=== PATIENT | female | born 1960 | race Caucasian/White ===

== ENCOUNTER 2019-05-15 09:49 | Outpatient (CLI) | payer OTHER, SELFPAY ==
[2019-05-15 10:22] LABS: Alanine Aminotransferase 18 U/L (4-35); Albumin Level 4.2 g/dL (3.5-5.1); Alkaline Phosphatase 102 U/L (38-126); Aspartate Amino Transferase 22 U/L (14-36); Bilirubin,Total 0.4 mg/dL (0.2-1.3); Blood Urea Nitrogen 14 mg/dL (7-17); Calcium 9.3 mg/dL (8.4-10.2); Carbon Dioxide 27 mmol/L (22-30); Chloride 102 mmol/L (98-107); Cholesterol 152 mg/dL (0-200); Estimated Glomerular Filt Rate > 60; Glucose 98 mg/dL (65-105); HDL Direct 56 mg/dL; Potassium 4.4 mmol/L (3.4-5.0); Sodium 140 mmol/L (137-145); Triglycerides 109 mg/dL (<150)
[2019-05-15 10:33] LABS: LDL Cholesterol Direct 84 mg/dL
[2019-05-15 10:41] LABS: Hemoglobin A1C 6.4 % (<5.7)
[2019-05-15 10:53] LABS: Creatinine Urine 193.9 mg/dL
[2019-05-15 10:57] LABS: MALB Creatinine Ratio 4.5 mg/g (0-30); Microalbumin Urine Random 8.7 mg/L (0-16.7)
== END 2019-05-15 09:50 | disposition home or self-care (01) ==
PROVIDERS: PCP Internal Medicine; Visit Provider Internal Medicine
DX: E11.9 Type 2 diabetes mellitus without complications (principal); E78.5 Hyperlipidemia, unspecified; E03.9 Hypothyroidism, unspecified; Z79.899 Other long term (current) drug therapy
CPT/HCPCS: 36415; 80053; 80061; 82043; 83036; 84443

== ENCOUNTER 2019-05-28 13:47 | Emergency (ER) | payer OTHER, SELFPAY ==
--- NOTE | ~2019-05-28 | XR_ITS ---
EXAMINATION: XR chest 2V DATE: 05/28/2019 14:13 INDICATION: Palpitations. TECHNIQUE: Frontal and lateral views of the chest were obtained. COMPARISON: Chest 2 views 03/28/2013 FINDINGS: The chest demonstrates clear lungs without pneumonia, pleural effusion, or pneumothorax. Th e heart size is normal. Surgical clips in the right upper quadrant are likely from cholecystectomy. IMPRESSION: 1. No acute cardiopulmonary disease. Reviewed, dictated and finalized at location A. LESOFT FUNCTIONAL ANALYST
--- NOTE | 2019-05-28 13:50 | ECG_ITS ---
Measurements Intervals [place] Rate: 66 P: 24 NE: 151 QRS: -27 QRSD: 97 T: -5 QT: 387 QTc: 406 Interpretive Statements SINUS RHYTHM DELAYED PRECORDIAL R/S TRANSITION POSSIBLE LEFT VENTRICULAR HYPERTROPHY NONSPECIFIC ST ELEVATION- ANT/LAT LEADS BORDERLINE T WAVE ABNORMALITY- INFERIOR LEADS BASELINE ARTIFACT- II, III, AVF BORDERLINE ECG Electronically Signed On 05-28-2019 16:18:50 WAXING MACHINE OPERATOR by Pardeep Raza D.O.
--- NOTE | 2019-05-28 13:51 | ED.ARRPALP ---
HPI - Arrhythmia/Palpitations General Chief Complaint: Arrhythmia/Palpitations Stated Complaint: vibrating real bad AFIB? Time Seen by Provider: 05/28/19 13:49 Source: patient Mode of arrival: ambulatory Limitations: no limitations History of Present Illness HPI narrative: A 58 y/o female presents to the ED with c/o chest vibration. Pt states that the chest vibration started while she was sitting at her house and became a tightness on her way to the ED. She has a PMHx of Afib and states that her symptoms feel similar. Pt currently takes Warfarin and Diltiazem daily and Dr. Raza is her care trainer. She notes that the chest tightness is resolved in the ED. Pt reports dizziness, sore throat, heart palpitations, and otalgia, but denies nausea, BLE edema, BLE pain, and diaphoresis. She denies any recent car or air travel. MD complaint: irregular heart beat (Chest vibration) Onset (ago): hour(s) (Today) Duration: now resolved Severity: similar to previous episodes Context: occurred during rest Associated symptoms: other (Dizziness, sore throat, heart palpitations, otalgia) Related Data Home Medications Medication Instructions Recorded Confirmed albuterol sulfate 90 mcg/actuation See Rx Instructions INHALATION Q4H 02/01/19 04/05/19 aerosol inhaler PRN alprazolam 1 mg tablet 1 mg PO BID PRN 02/01/19 04/05/19 citalopram 40 mg tablet 40 mg PO DAILY 02/01/19 04/05/19 diltiazem HCl 120 mg capsule,24 120 mg PO DAILY 02/01/19 04/05/19 hr,extended release cetirizine 10 mg tablet 10 mg PO DAILY PRN 04/05/19 04/05/19 Allergies Allergy/AdvReac Type Severity Reaction Status Date / Time clarithromycin Allergy Mild Unknown Verified 05/28/19 13:57 hydrocodone Allergy Mild NAUSEA/ITCH Verified 05/28/19 13:57 ING Macrolide Antibiotics Allergy Unknown Unknown Verified 05/28/19 13:57 POTASSIUM CLAVULANATE Allergy Unknown ITCH Uncoded 04/13/19 08:56 Review of Systems Review of Systems: Narrative: CONSTITUTIONAL: Denies fever, chills, or sweats. EYES: Denies visual changes, redness, or discharge. ENT: Denies rhinorrhea or congestion. Reports sore throat and otalgia. CARDIOVASCULAR: Denies BLE edema and diaphoresis. Reports chest vibration and heart palpitations. RESPIRATORY: Denies cough or dyspnea. GASTROINTESTINAL: Denies abdominal pain, nausea, vomiting, or diarrhea. GENITOURINARY: Denies dysuria or hematuria. SKIN: Denies rash or itching. MUSCULOSKELETAL: Denies back pain, BLE pain, joint pain, or myalgia. NEUROLOGIC: Denies headache, numbness, or weakness. Reports dizziness. All systems reviewed & are unremarkable except as noted in HPI and below [facility] Past Medical History Medical History (Updated 05/28/19 @ 17:56 by Claribel Martinez MD) Anxiety Arthritis Asthma Bilateral ankle fractures Bronchitis Chronic back pain Depression Diabetes DVT prophylaxis Dyslipidemia Fibromyalgia GERD (gastroesophageal reflux disease) Headache, migraine Hemorrhoids History of angina Hypokalemia Hypothyroidism IBS (irritable bowel syndrome) Morbid obesity with BMI of 45.0-49.9, adult AVINASH (obstructive sleep apnea) Osteoporosis PAF (paroxysmal atrial fibrillation) Peripheral neuropathy Pneumonia Post-menopausal Sinus infection Thyroid disease UTI (urinary tract infection) Surgical History Surgical History History of ankle surgery History of carpal tunnel release History of cholecystectomy History of endometrial ablation Family History Family History Father Diabetes mellitus Hypertension Family history of lung cancer Family history of malignant neoplasm of kidney Family history of diabetes mellitus in first degree relative Mother Family history of osteoporosis Hypertension Family history of arthritis Other Family history of malignant neoplasm Social History Social History
[2019-05-28 13:53] VITALS: BP 134/98; PULSE 65; RESP 16; TEMP 36.8; O2SAT 98
[2019-05-28 13:57] VITALS: PULSE 68
[2019-05-28 14:08] LABS: Basophils Absolute Auto 0.1 K/mm3 (0.0-0.1); Basophils Percent Auto 0.8 % (0.2-1.2); Eosinophils Absolute Auto 0.5 K/mm3 (0-0.3); Eosinophils Percent Auto 5.8 % (0-4.4); Hematocrit 43.4 % (37.0-47.0); Hemoglobin 14.1 g/dL (12.0-15.0); Immature Granulocyte Absolute 0.02 K/mm3 (0.00-0.031); Immature Granulocyte Percent A 0.2 % (0-0.5); Lymphocytes Absolute Auto 2.66 K/mm3 (0.9-3.2); Mean Corpuscular HGB Conc 32.5 g/dl (32-36); Mean Corpuscular Hemoglobin 27.5 pg (26-34); Mean Corpuscular Volume 84.8 fl (80-100); Mean Platelet Volume 9.7 fl (7.4-10.4); Monocytes Absolute Auto 0.5 K/mm3 (0.1-0.6); Monocytes Percent Auto 5.4 % (2.6-8.5); Neutrophils Absolute Auto 4.6 K/mm3 (1.3-6.7); Neutrophils Percent Auto 55.8 % (45.5-73.1); Platelet Count Result 337 k/mm3 (150-375); Red Blood Count 5.12 M/mm3 (4.2-5.4); Red Cell Distribution Width 15.6 % (11.5-14.5); White Blood Count 8.3 K/mm3 (4.5-10.0)
[2019-05-28 14:18] LABS: INR 1.6; Prothrombin Time 18.8 Seconds (11.1-14.7)
[2019-05-28 14:30] LABS: Blood Urea Nitrogen 11 mg/dL (7-17); Calcium 9.3 mg/dL (8.4-10.2); Carbon Dioxide 24 mmol/L (22-30); Chloride 107 mmol/L (98-107); Estimated CRCL calculation 96 ml/min; Estimated Glomerular Filt Rate > 60; Glucose 120 mg/dL (65-105); Potassium 4.4 mmol/L (3.4-5.0); Sodium 138 mmol/L (137-145)
[2019-05-28 14:42] LABS: Troponin I < 0.012 ng/mL (0.000-0.034)
[2019-05-28 15:01] LABS: Thyroid Stimulating Hormone 0.692 uIU/mL (0.465-4.680)
[2019-05-28] MEDS: SODIUM CHLORIDE 0.9% IV 1,000 ML 999 ML IV CONT (15:30)
[2019-05-28 17:53] LABS: Troponin I < 0.012 ng/mL (0.000-0.034)
[2019-05-28 18:30] VITALS: BP 129/88; PULSE 57; RESP 14; O2SAT 100
== END 2019-05-28 18:40 | disposition home or self-care (01) ==
PROVIDERS: Emergency Provider Emergency Medicine; PCP Internal Medicine
DX: R00.2 Palpitations (principal); R07.89 Other chest pain; M19.90 Unspecified osteoarthritis, unspecified site; I48.0 Paroxysmal atrial fibrillation; J45.909 Unspecified asthma, uncomplicated; E11.42 Type 2 diabetes mellitus with diabetic polyneuropathy; E78.5 Hyperlipidemia, unspecified; M79.7 Fibromyalgia; K21.9 Gastro-esophageal reflux disease without esophagitis; E03.9 Hypothyroidism, unspecified; K58.9 Irritable bowel syndrome, unspecified; G47.33 Obstructive sleep apnea (adult) (pediatric); M81.0 Age-related osteoporosis without current pathological fracture; F41.9 Anxiety disorder, unspecified; F32.9 Major depressive disorder, single episode, unspecified; Z87.440 Personal history of urinary (tract) infections; R94.31 Abnormal electrocardiogram [ECG] [EKG]; Z79.01 Long term (current) use of anticoagulants; Z79.84 Long term (current) use of oral hypoglycemic drugs
CPT/HCPCS: 36415; 71046; 80048; 84443; 84484; 85025; 85610; 85730; 93005; 96360; 99284; J7030

== ENCOUNTER 2019-09-08 09:09 | Outpatient (CLI) | payer OTHER, SELFPAY ==
[2019-09-08 09:48] LABS: Blood Urea Nitrogen 17 mg/dL (7-17); Carbon Dioxide 29 mmol/L (22-30); Chloride 103 mmol/L (98-107); Estimated Glomerular Filt Rate > 60; Glucose 114 mg/dL (65-105); Potassium 4.1 mmol/L (3.4-5.0); Sodium 137 mmol/L (137-145)
== END 2019-09-08 09:10 | disposition home or self-care (01) ==
PROVIDERS: PCP Internal Medicine; Visit Provider Nurse Practitioner
DX: R60.0 Localized edema (principal)
CPT/HCPCS: 36415; 80048

== ENCOUNTER 2019-11-01 13:45 | Outpatient (RCR) | payer OTHER, SELFPAY ==
--- NOTE | 2019-08-11 13:30 | PTOPEVAL ---
PHYSICAL THERAPY EVALUATION AND PLAN OF CARE Thank you for referring Rhonda Millan to [facility]. I recommend Mitra participate in aquatic physical therapy 2x/week for 4 weeks. Please review, sign, date and return this plan of care DENI. I agree with and certify that the following plan of care is medically necessary. Referring Physician Date Attending Provider: Doretha Anglin, SPEECH LANGUAGE PATHOLOGIST TRAVEL-BC Evaluation Cardiovascular History Hx Atrial Fibrillation Yes Musculoskeletal History Hx Back Pain Yes Endocrine History Hx Diabetes Yes Evaluation Information Problem Diagnosis bilateral knee pain Onset 05/2019 Cause insidious Subjective Information Rhonda states that she has had Query Text:As Reported By Patient/ a lifelong difficulty with Family her knees, but that after her hospitalization in 05/2019 she noticed significant increase in the pain she experiences. Walking is very difficult and walking up the stairs to enter her home is very painful and difficult Prior Level of Function Home Setting Home Type House,Single Level Environmental Barriers Railing, Ascend Right,Stairs, 2-4 Bilateral Knee(s) Reported Pain Level 7 Pain Description Aching,Sharp Pain Frequency Acute,Continuous Lowest Pain Intensity 6 Greatest Pain Intensity 8 Pain Score Pain Score 7: Self Report Knee Range of Motion Left Knee Flexion Range of Motion - Active 110 Knee Extension Range of Motion - Active 10 Query Text: Right Knee Flexion Range of Motion - Active 105 Knee Extension Range of Motion - Active 10 Query Text: Hip Strength Bilateral Hip Flexion Strength 4- Good - Hip Extension Strength 3+ Fair + Hip Abduction Strength 3- Fair - Hip Strength Comments increase in discomfort in back with hip MMT Knee Strength Bilateral Knee Flexion Strength 4- Good - Knee Extension Strength 4- Good - Knee Strength Comments fair quad set Muscle Length Testing Roosevelt Test Shortened Muscles Short (R) Iliopsoas,Short (L) Iliopsoas,Short (R) Rectus Femoris,Short (L) Rectus Femoris Piriformis w/Hip Flexion >90 Degrees (R) WFL,(L) WFL Left Hamstring Length -10 Query Text:(90 - 90 Position) Right Hamstring Length -20
--- NOTE | 2019-09-04 13:19 | PCPTNOTE ---
Patient called & cancelled scheduled appointment this date due to not feeling well.
--- NOTE | 2019-09-25 14:53 | PTOPEVAL ---
PHYSICAL THERAPY PLAN OF CARE UPDATE AND PROGRESS REPORT Thank you for referring Rhonda Millan to [facility]. I recommend Alyssa continue aquatic physical therapy 2x/week for 4 weeks. Please review, sign, date and return this plan of care DENI. I agree with and certify that the following plan of care is medically necessary. Referring Physician Date Attending Provider: Doretha Anglin, MINING HELPER-BC Progress Diagnosis bilateral knee pain Onset 05/2019 Cause insidious Subjective Information Rhonda has participated in Query Text:As Reported By Patient/ aquatic physical therapy for 4 Family weeks. She reports today that there are not alot of changes. She saw pain management doctor today, who was pleased with progress. Continues to experience significant knee pain. Self Report Pain Assessment Bilateral Knee(s) Reported Pain Level 6 Pain Description Aching,Sharp,Soreness, Tightness Pain Aggravating Factors Exercise/Activity,Stair Climbing,Walking,Weight Bearing/Standing Pain Behaviors Grimacing,Guarding Interventions Used By Clinicians Aquatic Therapy Pain Score Pain Score 6: Self Report Additional Pain Score Comments I think therapy is helping Lower Extremity Range of Motion Knee Range of Motion Left Knee Flexion Range of Motion - Active 110 Knee Extension Range of Motion - Active 5 Query Text: Right Knee Flexion Range of Motion - Active 105 Knee Extension Range of Motion - Active 5 Query Text: Hip Strength Bilateral Hip Flexion Strength 4 Good Hip Extension Strength 3+ Fair + Hip Abduction Strength 3 Fair Hip Strength Comments increase in discomfort in back with hip MMT Knee Strength Bilateral Knee Flexion Strength 4 Good Knee Extension Strength 4 Good Babin Balance Assessment 38/56 1month ago = 32/56 Timed Up and Go Test (TUG) (Seconds) 21 Assistive Devices None 5 Time Sit to Stand Time in Seconds 28.35 5 Time Sit to Stand Comments 1month ago = 32.75seconds in chair, no hands Gait Assessment Ambulation Assistive Devices Cane Weight Bearing Status - Left Full Weight Bearing Status - Right Full Ambulation Destination In Gym Ambulation Ability Independent 2 Minute Walk Total Distance Walked (feet) 216 2 Minute Walk Gait Speed Score (feet/ 1.80 second)
--- NOTE | 2019-10-04 08:32 | PCPTNOTE ---
Patient called & cancelled scheduled appointment this date due to not feeling well.
--- NOTE | 2019-10-13 10:00 | PCPTNOTE ---
Patient did not show up for scheduled appointment this date.
--- NOTE | 2019-10-17 12:38 | PCPTNOTE ---
Patient called & cancelled scheduled appointment this date due to having another appointment.
--- NOTE | 2019-11-01 14:24 | PTOPEVAL ---
PHYSICAL THERAPY PLAN OF CARE UPDATE AND PROGRESS REPORT Thank you for referring Rhonda Millan to [facility]. Rhonda is scheduled to participate in PT 1x/week for 4 weeks. Please review, sign, date and return this plan of care DENI. I agree with and certify that the following plan of care is medically necessary. Referring Physician Date Attending Provider: Doretha Anglin, MACHINE TOOL ELECTRICIAN-BC Diagnosis bilateral knee pain Onset 05/2019 Cause insidious Subjective Information Rhonda has been participating Query Text:As Reported By Patient/ in physical therapy for knee Family pain. She did take a break from aquatic physical therapy because she started therapy for lymphedema and she is not able to get in the pool with her wraps. She is more sore today because she worked in the yard yesterday. Self Report Pain Assessment Bilateral Knee(s) Reported Pain Level 6 Pain Description Aching,Soreness,Tightness Pain Aggravating Factors Exercise/Activity,Stair Climbing,Walking,Weight Bearing/Standing Hip Strength Bilateral Hip Flexion Strength 4 Good Hip Extension Strength 3+ Fair + Hip Abduction Strength 3 Fair Hip Strength Comments increase in discomfort in back with hip MMT Knee Strength Bilateral Knee Flexion Strength 4+ Good + Knee Extension Strength 4+ Good + Babin Balance Assessment 40/56 Comments 2month ago = 32/56 Timed Up and Go Test (TUG) (Seconds) 19 Assistive Devices None Comments cautious on turn 5 Time Sit to Stand 17.1 seconds 5 Time Sit to Stand Comments 1month ago: 28.35 Query Text:Normative Data: If Greater 2month ago = 32.75seconds Than 15 Seconds, 74% Increase Risk for in chair, no hands Recurrent Falls Gait Assessment 2 Minute Walk Total Distance Walked (feet) 286 2 Minute Walk Gait Speed Score (feet/ 2.38 second) 2 Minute Walk Test Comments 1month ago:1.8ft/second initially 1.3ft/second PT Clinical Summary Rhonda continues to demonstrate moderate balance deficits as well as mild functional strength deficits. I recommend continuing physical therapy for knee pain and strengthening 1x/week for 4 weeks.
--- NOTE | 2019-11-08 11:59 | PCPTNOTE ---
Patient called & cancelled scheduled appointment this date due to not being able to make it.
--- NOTE | 2019-11-10 14:06 | PCPTNOTE ---
This treatment is being continued on visit number [id number]. Please see documentation on both accounts to view progress. Completed interventions, outcomes, and problems have been marked as Inactive to facilitate the copying of the Care plan routine for recurring accounts.
== END 2019-11-09 23:59 | disposition home or self-care (01) ==
LOC: ANHPT 13:45
PROVIDERS: PCP Internal Medicine; Visit Provider Nurse Practitioner Family
DX: M17.0 Bilateral primary osteoarthritis of knee (principal)
CPT/HCPCS: 97110; 97113; 97161

== ENCOUNTER 2019-11-03 12:30 | Outpatient (RCR) | payer OTHER, SELFPAY ==
--- NOTE | 2019-09-20 14:40 | PTOPEVAL ---
PHYSICAL THERAPY EVALUATION AND PLAN OF TREATMENT 09-20-2019 The PT evaluation was completed for the diagnosis of B LE lymphedema. Her plan of treatment is scheduled for 2-3 x.week for 4 weeks. Thank you for referring Rhonda Millan to [facility]. Please review, sign, date and return this plan of care DENI. I agree with and certify that the following plan of care is medically necessary. Referring Physician Date Attending Provider: MIKE Jacinto *PT Outpatient Evaluation Start: 09/20/19 13:32 Document 09/20/19 13:32 TANA (Rec: 09/20/19 14:39 TANA [id number]) Therapy Assessment Status Assessment Status Assessment Status Evaluation Outpatient Past Medical History Past Medical History Source of Past Medical History Patient Neurological History Hx Other Neurological Disorders Yes: vertigo, on valium for it Cardiovascular History Hx Atrial Fibrillation Yes Respiratory History Hx Other Respiratory Disorders Yes: seasonal allergies Gastrointestinal History Hx Gall Bladder Disease Yes: gall bladder removed Hx Irritable Bowel Yes Genitourinary History Hx Genitourinary Disorders No Significant History Musculoskeletal History Hx Arthritis Yes: B knee pain- arthritis all over Hx Back Pain Yes Hx Fibromyalgia Yes Hx Fractures Yes: R and L ankle fractures with ORIF Hx Orthopedic Surgery Yes: R & L plantar fascitis surgery; Hx Other Musculoskeletal Disorders Yes: elbow,wrist,ankle, feet, neck pain;R carpal tunnel surgery Hematological History Hx Hematological Disorders No Significant History Endocrine History Hx Diabetes Yes: meds Hx Hypothyroidism Yes: meds HEENT History Hx HEENT Disorders No Significant History Integumentary History Hx Skin Disorders No Significant History Psychosocial History Hx Anxiety Yes: meds Other History Hx Other Medical Conditions Yes: weight gain ~ 40# in past 6 months Evaluation Information Problem Diagnosis lymphedema B LE's; Onset May 2019 Subjective Information currently is working with PT Query Text:As Reported By Patient/ here for B knee pain- doing Family aquatic exercises; she likes the water exercises; also has some vertigo that limits her mobility; Prior Level of Function Activity Level (Last 3 Months) Hand Dominance Ambidextrous Home Setting Living Situation With Friend Comments Additional Prior L
--- NOTE | 2019-09-26 11:52 | PCPTNOTE ---
pt did not show for today's scheduled appt;
--- NOTE | 2019-10-20 16:16 | PTOPEVAL ---
PHYSICAL THERAPY RE-EVALUATION AND UPDATED PLAN OF CARE 10-20-2019 Rhonda has received 8 PT sessions for the diagnosis of B LE lymphedema. She has had 4 treatments of the multi layer compression wraps to her R lower leg; initially, she did not want to do the wraps, then realized it was the best option for decreasing the size of her legs and decrease the lymphedema. The circumferential measurement of her R LE has decreased by 15.3 cm. She has been educated on lymphedema care, self manual lymph drainage and skin care. She has improved, but the goals were not achieved. Continue PT 3x/wk for 4 weeks, to further reduce her lymphedema and for her to obtain an appropriate compression garment. Thank you for referring Rhonda Millan to [facility]. Please review, sign, date and return this updated plan of care [facility]. I agree with and certify that the following plan of care is medically necessary. Referring Physician Date Attending Provider: Nohelia Ospina, ANIBAL-C Document 10/20/19 13:49 TANA (Rec: 10/20/19 14:12 TANA [id number]) Therapy Assessment Status Assessment Status Evaluation Information Problem Subjective Information Rhonda reports: R leg is Query Text:As Reported By Patient/ smaller; continue to have Family knee pain- ache all time and some sharp pain- inside part of knees; Pain Assessment Timing of Pain Assessment Timing of Pain Assessment Assessment Pain Scale Pain Scale Used Numeric (1 - 10) Self Report Pain Assessment Bilateral Leg(s) Reported Pain Level 7 Pain Description Aching,Sharp Pain Frequency Chronic Other Pain Description continues to have knee pain on R and L Pain Score Pain Score 7: Self Report Lower Extremity Muscle Strength Testing General Lower Extremity Strength Gross Lower Extremity Strength supine R and L SLR x 20 reps, clear LE ~2 off mat, labored; Lymphedema Evaluation Skin Inspection Location Left Lower Extremity,Right Lower Extremity Skin Observations Absence of Leg Hair,Foot Sparing,Lipedema,Obesity,Shiny , Dry, Pale Skin Skin Inspection Comment B slight redness over lower legs, with lobules over medial knees and upper tibia; L lower lateral leg ~ 20 cm with bruise; LE Circumferential Measurement Right LE Lymphedema Side Right Metatarsal Heads (cm) 22 Figure 8 of Ankle (cm) 51 8 cm From Bottom of Foot (cm) 26.5 12 cm From Bottom of Foot (cm) 27.4 16 cm From Bottom of Foot (cm) 29.5 20 cm From Bottom of Foot (cm) 31.5 24 cm From Bottom of Foot (cm) 36 28 cm From Bottom of Foot (cm
--- NOTE | 2019-11-14 13:29 | PCPTNOTE ---
pt called and cancelled due to family issues.
--- NOTE | 2019-11-23 11:36 | PCPTNOTE ---
pt called and canceled reevaluation today- stated out of town;
--- NOTE | 2019-11-28 11:54 | PCPTNOTE ---
pt called and canceled today's reevaluation. stated she was seeing an press secretary and not able to come to PT at this time.
--- NOTE | 2019-12-06 13:56 | PCPTNOTE ---
Addendum entered by Taniya Galan, PT 12/06/19 14:03: Correction: pt left message that she would be going to an weaver hand--NOT clothing presser. Original Note: PHYSICAL THERAPY DISCHARGE 12-06-2019 Attending Provider: Nohelia Ospina, CARTON MARKER MACHINE-C Patient:Rhonda Millan Date of :1960 Ms. Millan has not returned for any further treatments since 11/03/2019, therefore she will be discharged at this time. Rhonda has received 13 PT treatment sessions, for the diagnosis of B LE lymphedema, from September 19 to November 02. She did not show for 1 and called/canceled 3 appointments. On November 22 she then called and canceled therapy, stating she was going to see a clothing presser and wanted to hold off on any more therapy at this time. The goals were not assessed. Thank you for referring Ms. Millan to [facility]. Please review, sign, date and return this discharge summary DENI. I have been updated about the patient's current status and I agree with discharge from the above service at this time. Referring Physician Date
== END 2019-12-08 11:55 | disposition home or self-care (01) ==
LOC: ANHPT 12:30
PROVIDERS: PCP Internal Medicine; Visit Provider Nurse Practitioner
DX: I89.0 Lymphedema, not elsewhere classified (principal)
CPT/HCPCS: 29581; 97110; 97113; 97140; 97161

== ENCOUNTER 2019-11-16 08:17 | Outpatient (CLI) | payer OTHER, SELFPAY ==
[2019-11-16 08:55] LABS: Alanine Aminotransferase 16 U/L (4-35); Albumin Level 3.8 g/dL (3.5-5.1); Alkaline Phosphatase 106 U/L (38-126); Anion Gap 7 mmol/L (8-16); Aspartate Amino Transferase 21 U/L (14-36); Bilirubin,Total 0.1 mg/dL (0.2-1.3); Blood Urea Nitrogen 14 mg/dL (7-17); Calcium 8.6 mg/dL (8.4-10.2); Carbon Dioxide 27 mmol/L (22-30); Chloride 102 mmol/L (98-107); Cholesterol 153 mg/dL (0-200); Estimated Glomerular Filt Rate > 60; Glucose 154 mg/dL (65-105); HDL Direct 49 mg/dL; Potassium 4.4 mmol/L (3.4-5.0); Sodium 136 mmol/L (137-145); Triglycerides 108 mg/dL (<150)
[2019-11-16 08:58] LABS: Add Urine Microscopic? YES; Appearance Urine Clear (Clear); Bacteria Urine Trace /hpf; Bilirubin Urine Negative (Negative); Blood Urine Negative (Negative); Color Urine Yellow (Yellow); Glucose Urine UA 3+ mg/dL (Negative); Ketones Urine Negative (Negative); Leukocyte Esterase Ur Negative LEU/UL (Negative); Mucus Urine Rare /lpf; Nitrate Urine Negative (Negative); Protein Urine Negative (Negative); RBC Urine 0-2 /hpf (0-2); Squamous Epithelial Cell Urine Few /hpf (Few); Urobilinogen Urine Negative mg/dL (<2.0); WBC Urine 0-3 /hpf
[2019-11-16 09:07] LABS: LDL Cholesterol Direct 84 mg/dL
[2019-11-16 09:21] LABS: Creatinine Urine 52.8 mg/dL
[2019-11-16 09:27] LABS: MALB Creatinine Ratio < 11.4 mg/g (0-30); Microalbumin Urine Random < 6.0 mg/L (0-16.7)
[2019-11-16 09:33] LABS: Hemoglobin A1C 6.7 % (<5.7)
== END 2019-11-16 08:18 | disposition home or self-care (01) ==
PROVIDERS: PCP Internal Medicine; Visit Provider Nurse Practitioner
DX: E11.9 Type 2 diabetes mellitus without complications (principal); E03.9 Hypothyroidism, unspecified; E78.5 Hyperlipidemia, unspecified; R35.0 Frequency of micturition
CPT/HCPCS: 36415; 80053; 80061; 81001; 82043; 83036; 84443; 85610

== ENCOUNTER 2019-11-16 08:25 | Outpatient (RCR) | payer OTHER, SELFPAY ==
[2019-10-05 16:30] LABS: INR 1.6; Prothrombin Time 18.9 Seconds (11.1-14.7)
[2019-11-16 08:56] LABS: INR 1.9; Prothrombin Time 21.5 Seconds (11.1-14.7)
== END 2019-12-06 15:14 | disposition home or self-care (01) ==
LOC: ANHLAB 08:25
PROVIDERS: PCP Internal Medicine; Visit Provider Internal Medicine Cardiovascular Disease
DX: I48.0 Paroxysmal atrial fibrillation (principal)
CPT/HCPCS: 36415; 85610

== ENCOUNTER 2019-11-28 07:45 | Outpatient (RCR) | payer OTHER, SELFPAY ==
--- NOTE | 2019-11-10 14:07 | PCPTNOTE ---
The treatment documented on this account is a continuation of the treatment documented on visit number [id number]. Please see documentation on both accounts to view progress. The Plan of Care has been transitioned and updated within the new V#. I have addressed and agree with the discipline specific Problems, Interventions, and Goals for the current certification period. Completed interventions, outcomes, and problems have been marked as Inactive to facilitate the copying of the Care plan routine for recurring accounts.
--- NOTE | 2019-11-14 14:33 | PCPTNOTE ---
Patient called & cancelled scheduled appointment for 11/14 due to problems with family
--- NOTE | 2019-11-28 13:00 | PCPTNOTE ---
Patient called & cancelled scheduled appointment this date due to other issues.
--- NOTE | 2019-12-06 14:04 | PCPTNOTE ---
PHYSICAL THERAPY DISCHARGE NOTE Attending Provider: Doretha Anglin, HEEL BREASTER-BC Patient:Rhonda Millan Date of :1960 Patient has not returned for any further treatments since 11/01/2019, therefore she will be discharged at this time. She called and cancelled remaining appointments. The goals have been partially met. Thank you for referring this patient to [facility]. Please review, sign, date and return this discharge summary DENI. I have been updated about the patient's current status and I agree with discharge from the above service at this time. Referring Physician Date
== END 2019-12-06 15:14 | disposition home or self-care (01) ==
LOC: ANHPT 07:45
PROVIDERS: PCP Internal Medicine; Visit Provider Nurse Practitioner Family
DX: M17.0 Bilateral primary osteoarthritis of knee (principal)
CPT/HCPCS: 99199

== ENCOUNTER 2020-01-02 09:47 | Outpatient (CLI) | payer OTHER, SELFPAY ==
--- NOTE | ~2020-01-02 | DEXA_ITS ---
Bone Density Report Name: Rhonda Millan Age: 59 Sex: Female Ethnicity: White Date of : 1960 Indication: postmenopausal; prior fracture; Referring Provider: Nohelia Ospina Study: Bone densitometry was performed. Exam Date: January 02, 2020 Accession number: [id number] Bone Density: Region BMD T-score Z-score Classification AP Spine (L1-L4) 1.074 0.2 1.5 Normal Femoral Neck (Left) 0.823 -0.2 1.0 Normal Total Hip (Left) 1.261 2.6 3.5 Normal Total Hip Bilateral Avg 1.225 2.3 3.2 Normal Femoral Neck (Right) 0.775 -0.7 0.5 Normal Total Hip (Right) 1.187 2.0 2.8 Normal World Health Organization criteria for BMD impression classify patients as: Normal (T-score at or above -1.0), Osteopenia (T-score between -1.0 and -2.5), or Osteoporosis (T-score at or below -2.5). 10-year Fracture Risk: FRAX not reported because: All T-scores for Spine Total, Hip Total, Femoral Neck at or above -1.0 Clinical Information Provided by Patient: Has had a low trauma fracture Patient maximum height was 65 Menopause Age: 41 No regular weight bearing exercise Drinks caffeinated beverages Onset of menses at age 14 Number of children 2 Impression: The patient has normal bone mass. The patient has risk factors, including: previous fracture. Discussion: BONE DENSITY IS ABOVE THE MINIMUM DESIRABLE LEVEL AT ALL SKELETAL SITES TESTED. This patient?s bone mineral density is above the minimum desirable level (T-score -1.0 or better) at all sites measured. The patient should follow a healthful lifestyle (good nutrition with adequate calcium and vitamin D, and appropriate weight-bearing exercise). Follow-Up: Consider repeating this study in 5 years or sooner if there is some new clinical indication. Reported by: TIRSO on 01/02/2020 10:23:00 AM. Reviewed, dictated and finalized at location ACarly PONCE
--- NOTE | ~2020-01-02 | MM_ITS ---
EXAMINATION: MM screening pam BI w rey HISTORY: Screening TECHNIQUE: Craniocaudal and mediolateral oblique 3-D tomosynthesis images were obtained and synthetic 2-D images were generated. CAD analysis was submitted and interpreted. COMPARISON: Comparison to multiple prior studies sequentially, with oldest reviewed study dated 07/23. BREAST PARENCHYMAL COMPOSITION: There are scattered areas of fibroglandular density. FINDINGS: There is no evidence of suspicious mass, calcification, or architectural distortion to sugg est malignancy in either breast. There has been no suspicious interval change. IMPRESSION: 1. No mammographic evidence of malignancy. 2. Recommend routine screening mammography in one year. BI-RADS Category 1: Negative Reviewed, dictated and finalized at location A.
== END 2020-01-02 09:48 | disposition home or self-care (01) ==
PROVIDERS: PCP Internal Medicine; Visit Provider Internal Medicine
DX: Z12.31 Encounter for screening mammogram for malignant neoplasm of breast (principal); Z13.820 Encounter for screening for osteoporosis; Z78.0 Asymptomatic menopausal state
CPT/HCPCS: 77063; 77067; 77080

== ENCOUNTER 2020-01-31 06:54 | Outpatient (NON) | payer OTHER, SELFPAY ==
[2020-02-01 13:08] LABS: SARS-CoV-2 RNA PCR Negative
== END 2020-01-31 06:55 ==
LOC: ANHCOVIDDT 07:00
PROVIDERS: PCP Internal Medicine; Visit Provider Internal Medicine
DX: R09.89 Other specified symptoms and signs involving the circulatory and respiratory systems (principal); Z20.828 Contact with and (suspected) exposure to other viral communicable diseases
CPT/HCPCS: 87635; C9803; U0003

== ENCOUNTER 2020-02-21 20:27 | Emergency (ER) | payer OTHER, SELFPAY ==
--- NOTE | ~2020-02-21 | CT_ITS ---
EXAMINATION: CT brain wo con DATE: 02/21/2020 21:57 INDICATION: Headache TECHNIQUE: Computed tomography (CT) of the head was performed without intravenous contrast. Sagittal and coronal reconstructions were performed. The mA was adjusted according to patient size. Iterative reconstruction technique was employed. The dose-length product was 605.33 mGy-cm. COMPARISON: head CT dated 09/29/2017 and MRI dated 09/30/2017 FINDINGS: No acute intracranial hemorrhage, acute infarction or abnormal extra axial fluid collection. Ventricl es are normal and symmetric. No mass/mass effect. Mild mucosal thickening in the bilateral ethmoid an d sphenoid sinuses. The orbits and mastoid air cells are normal. Mild calcified cerebral atherosclero sis is noted at the carotid siphons. IMPRESSION: 1. Normal brain. No acute intracranial process. Reviewed, dictated and finalized at [facility]. RVESCENT SALTS COMPOUNDER
--- NOTE | ~2020-02-21 | XR_ITS ---
EXAMINATION: XR chest 1V portable DATE: 02/21/2020 21:52 INDICATION: Cough, nausea, vomiting and diarrhea. TECHNIQUE: frontal view of the chest was obtained. COMPARISON: Chest radiograph dated 05/28/2019 FINDINGS: Mild increased perihilar and infrahilar interstitial pattern with bronchial wall thickening. More foc al small triangular airspace opacity in the left suprahilar region. No pleural effusion or pneumothor ax. The cardiomediastinal silhouette is normal. Visualized bones and soft tissues are unremarkable. IMPRESSION: 1. Mild increased interstitial pattern in the perihilar and infrahilar regions with bronchial wall th ickening which could represent mild pulmonary edema, bronchitis, reactive airway disease or early pne umonia. 2. More focal triangular airspace opacity in the left suprahilar region which in the acute setting co uld represent atelectasis, pneumonia or artifactual appearance due to superimposition of vascular sha dows. Recommend radiographic follow-up to resolution. Reviewed, dictated and finalized at location H. RHANGER SUPERVISOR IMPRESSION: 1. Mild increased interstitial pattern in the perihilar and infrahilar regions with bronchial wall thickening which could represent mild pulmonary edema, bron chitis, reactive airway disease or early pneumonia. 2. More focal triangular airspace opacity in the left suprahilar region which i n the acute setting could represent atelectasis, pneumonia or artifactual appea juan due to superimposition of vascular shadows. Recommend radiographic follow -up to resolution.
--- NOTE | ~2020-02-21 | CT_ITS ---
EXAMINATION: CT abdomen pelvis w con DATE: 02/21/2020 23:42 INDICATION: Lower abdominal pain. TECHNIQUE: Computed tomography (CT) of the abdomen and pelvis was performed with 100 mL Omnipaque-350 intravenous contrast. Automated exposure control and iterative reconstruction technique were employe d. The dose-length product was 1494.33 mGy-cm. COMPARISON: 11/28/2018 FINDINGS: Unchanged 6 mm left lower lobe subpleural nodule. Mild dependent atelectasis in the bilateral lower l obes. Heart size is normal. No pericardial or pleural effusion. Cholecystectomy clips at the gallblad jasmine fossa and dropped clip in the pelvis. Liver, spleen, pancreas, bilateral adrenal glands and left kidney are normal. 1 mm nonobstructing stone at the inferior calyx of the right kidney. Bladder, ante verted uterus and bilateral adnexa are unremarkable. Bowels including the appendix are normal. No tu e intraperitoneal gas or fluid. No pathologically enlarged abdominal or pelvic lymphadenopathy. 2 add itional 3 mm retrolisthesis L1 on L2 and L2 on L3. Moderate disc height loss with vacuum phenomena at L5-S1. IMPRESSION: 1. No acute intra-abdominal/pelvic process. 2. Nonobstructing 1 mm right renal stone. Reviewed, dictated and finalized at location . MOLDER
[2020-02-21 20:34] VITALS: BP 158/84; PULSE 72; RESP 16; TEMP 37.2; O2SAT 98
--- NOTE | 2020-02-21 21:17 | ECG_ITS ---
Measurements Intervals [place] Rate: 74 P: 30 MD: 142 QRS: 3 QRSD: 93 T: 30 QT: 369 QTc: 411 Interpretive Statements SINUS RHYTHM LOW QRS VOLTAGE IN PRECORDIAL LEADS DELAYED PRECORDIAL R/S TRANSITION NONSPECIFIC T-WAVE ABNORMALITY- DIFFUSE LEADS BASELINE ARTIFACT- I, III, AVR, AVL, AVF, V2, V6 BORDERLINE ECG Electronically Signed On 02-22-2020 8:47:[address] by Pardeep Raza D.O.
--- NOTE | 2020-02-21 21:20 | ED.NAVMDI ---
HPI - Nausea/Vomiting/Diarrhea General Chief complaint: Nausea/Vomiting/Diarrhea Stated complaint: multiple complaints Time Seen by Provider: 02/21/20 21:02 Source: patient Mode of arrival: EMS Limitations: no limitations History of Present Illness HPI Narrative: This patient is a 59 year old female with multiple medical problems who presents with nausea, vomiting, and diarrhea. She states her father was admitted today with covid symptoms. She states she was tested for covid 3 weeks ago due to have sinus drainage, congestion and headache. Her test was negative at that time. She states over the past 2 days she has not felt well. She reports nausea, vomiting and diarrhea. She also reports a headache, chest pain and abdominal pain. She denies fever or chills. She is on warfarin for atrial fibrillation and she has not gotten her INR checked in a while. She noticed bruising to her bilateral arms today. Related Data Home Medications Medication Instructions Recorded Confirmed diltiazem HCl 120 mg capsule,24 120 mg PO DAILY cap 11/15/19 hr,extended release Allergies Allergy/AdvReac Type Severity Reaction Status Date / Time clarithromycin Allergy Mild Nausea and Verified 11/15/19 11:13 Vomiting hydrocodone Allergy Mild NAUSEA/ITCH Verified 11/15/19 11:13 ING Macrolide Antibiotics Allergy Unknown Nausea and Verified 11/15/19 11:13 Vomiting Review of Systems Review of Systems: All systems reviewed & are unremarkable except as noted in HPI and below Constitutional: Constitutional: Reports fatigue ENT: Reports nasal congestion Cardiovascular: Cardiovascular: Reports chest pain and Denies radiating jaw, neck or arm pain Respiratory: Respiratory: Reports cough and Denies dyspnea Gastrointestinal: Gastrointestinal: Reports abdominal pain, Reports diarrhea, Reports nausea and Reports vomiting Musculoskeletal: Musculoskeletal: Reports back pain PMFSH Past Medical History Medical History Anxiety Arthritis Asthma Bilateral ankle fractures Bronchitis Chronic back pain Depression Diabetes DVT prophylaxis Dyslipidemia Edema of both lower extremities Fibromyalgia GERD (gastroesophageal reflux disease) Headache, migraine Hemorrhoids History of angina Hypokalemia Hypothyroidism IBS (irritable bowel syndrome) Morbid obesity with BMI of 45.0-49.9, adult AVINASH (obstructive sleep apnea) Osteoporosis PAF (paroxysmal atrial fibrillation) Peripheral neuropathy Pneumonia Post-menopausal Screening for breast cancer Screening for colon cancer Screening for osteoporosis Sinus infection Thyroid disease UTI (urinary tract infection) Vertigo Surgical History Surgical History History of ankle surgery History of carpal tunnel release History of cholecystectomy History of endometrial ablation Family History Family History Father Diabetes mellitus Hypertension Family history of lung cancer Family history of malignant neoplasm of kidney Family history of diabetes mellitus in first degree relative Mother Family history of osteoporosis Hypertension Family history of arthritis Other Family history of malignant neoplasm Social History Social History Smoking status: Never smoker Alcohol intake: current Gender identity (if verbalized by the patient): Female Exam Const: General: no acute distress and alert Nutritional Appearance: obese Orientation/consciousness: patient oriented x3 HENMT: Head: normocephalic and atraumatic Face and sinus: face symmetric Mouth: Yes Normal oral and palatal mucosa present, Yes lip normal, Yes oropharynx normal and Yes moist mucous membranes Throat: posterior oropharynx normal, tonsils normal and uvula midline Eyes: Pupils:
[2020-02-21] MEDS: LACTATED RINGERS 1,000 ML 999 ML IV CONT (21:43)
[2020-02-21] MEDS: ONDANSETRON INJ 4 MG/2 ML VIAL IV PUSH (21:43)
[2020-02-21 21:46] LABS: Basophils Percent Auto 0.4 % (0.2-1.2); Eosinophils Percent Auto 0.2 % (0-4.4); Hematocrit 41.7 % (37.0-47.0); Hemoglobin 14.1 g/dL (12.0-15.0); Immature Granulocyte Absolute 0.02 K/mm3 (0.00-0.031); Immature Granulocyte Percent A 0.4 % (0-0.5); Lymphocytes Absolute Auto 0.92 K/mm3 (0.9-3.2); Lymphocytes Percent Auto 16.9 % (18.3-44.2); Mean Corpuscular HGB Conc 33.8 g/dl (32-36); Mean Corpuscular Hemoglobin 27.8 pg (26-34); Mean Corpuscular Volume 82.1 fl (80-100); Mean Platelet Volume 9.4 fl (7.4-10.4); Monocytes Absolute Auto 0.6 K/mm3 (0.1-0.6); Monocytes Percent Auto 10.7 % (2.6-8.5); Neutrophils Absolute Auto 3.9 K/mm3 (1.3-6.7); Neutrophils Percent Auto 71.4 % (45.5-73.1); Platelet Count Result 222 k/mm3 (150-375); Red Blood Count 5.08 M/mm3 (4.2-5.4); Red Cell Distribution Width 16.6 % (11.5-14.5); White Blood Count 5.4 K/mm3 (4.5-10.0)
--- NOTE | 2020-02-21 21:49 | PC.NURSE ---
Called lab to add on BNP
[2020-02-21 21:55] LABS: INR 1.4; Prothrombin Time 17.7 Seconds (11.1-14.7)
[2020-02-21 21:56] LABS: Partial Thromboplastin Time 37.3 SECONDS (22.3-36.8)
[2020-02-21 22:03] LABS: Lactic Acid Reflex 0.9 mmol/L (0.7-2.1)
[2020-02-21 22:05] LABS: Alanine Aminotransferase 18 U/L (4-35); Albumin Level 3.8 g/dL (3.5-5.1); Alkaline Phosphatase 115 U/L (38-126); Anion Gap 11 mmol/L (8-16); Aspartate Amino Transferase 27 U/L (14-36); Bilirubin,Total 0.5 mg/dL (0.2-1.3); Blood Urea Nitrogen 12 mg/dL (7-17); CRP 4.9 mg/dL (<1.0); Calcium 8.5 mg/dL (8.4-10.2); Carbon Dioxide 21 mmol/L (22-30); Chloride 108 mmol/L (98-107); Estimated CRCL calculation 121 ml/min; Estimated Glomerular Filt Rate > 60; Glucose 141 mg/dL (65-105); Lipase 42 U/L (23-300); Magnesium 1.8 mg/dL (1.6-2.3); Potassium 3.6 mmol/L (3.4-5.0); Sodium 140 mmol/L (137-145)
[2020-02-21 22:14] LABS: NT Pro B Type Natriuretic Pept 135 PG/ML (5-100); Troponin I < 0.012 ng/mL (0.000-0.034)
[2020-02-21 23:42] LABS: Add Urine Microscopic? YES; Appearance Urine Cloudy (Clear); Bacteria Urine 1+ /hpf; Bilirubin Urine Negative (Negative); Blood Urine Negative (Negative); Color Urine Yellow (Yellow); Glucose Urine UA Negative (Negative); Ketones Urine 1+ mg/dL (Negative); Leukocyte Esterase Ur Negative LEU/UL (Negative); Mucus Urine Few /lpf; Nitrate Urine Negative (Negative); Protein Urine 1+ mg/dL (Negative); RBC Urine 0-2 /hpf (0-2); Specific Grav Ur 1.023 (1.001-1.035); Squamous Epithelial Cell Urine Many /hpf (Few); Urobilinogen Urine Negative mg/dL (<2.0); WBC Urine 0-3 /hpf
[2020-02-22] MEDS: HYDROmorphone HCL INJ (*CRX) 1 MG/ML SYR 0.5 MG IV PUSH (01:12)
[2020-02-22] MEDS: ONDANSETRON INJ 4 MG/2 ML VIAL IV PUSH (01:13)
[2020-02-22 01:32] VITALS: BP 154/89; PULSE 84; RESP 18; TEMP 36.4; O2SAT 98
[2020-02-23 17:05] LABS: SARS-CoV-2 RNA PCR Positive
== END 2020-02-22 01:33 | disposition home or self-care (01) ==
PROVIDERS: Emergency Provider General Practice; PCP Internal Medicine
DX: U07.1 COVID-19 (principal); K52.9 Noninfective gastroenteritis and colitis, unspecified; I48.0 Paroxysmal atrial fibrillation; Z79.01 Long term (current) use of anticoagulants; J45.909 Unspecified asthma, uncomplicated; E11.42 Type 2 diabetes mellitus with diabetic polyneuropathy; M79.7 Fibromyalgia; E78.5 Hyperlipidemia, unspecified; K21.9 Gastro-esophageal reflux disease without esophagitis; E03.9 Hypothyroidism, unspecified; M81.0 Age-related osteoporosis without current pathological fracture; Z87.440 Personal history of urinary (tract) infections; N20.0 Calculus of kidney; R94.31 Abnormal electrocardiogram [ECG] [EKG]; R91.8 Other nonspecific abnormal finding of lung field
CPT/HCPCS: 36415; 70450; 71045; 74177; 80053; 81001; 83605; 83690; 83735; 83880; 84484; 85025; 85610; 85730; 86140; 87040; 87635; 87804; 93005; 96361; 96374; 96375; 99284; C9803; J1170; J2405; J7120; Q9967; U0003

== ENCOUNTER 2020-03-20 07:12 | Outpatient (CLI) | payer OTHER, SELFPAY ==
--- NOTE | ~2020-03-20 | XR_ITS ---
EXAMINATION: XR chest 2V DATE: 03/20/2020 07:31 INDICATION: Abnormal findings on diagnostic imaging, history of COVID 19 TECHNIQUE: PA and lateral views of the chest are obtained. COMPARISON: 02/21/2020 FINDINGS: The lungs are free of acute opacities. There is no pleural effusion or pneumothorax. The ca rdiomediastinal silhouette is normal. The visualized bones and soft tissues are unremarkable. Cholecy stectomy clips are noted. IMPRESSION: 1. No acute cardiopulmonary abnormality. Reviewed, dictated and finalized at location A. ET CREASER
== END 2020-03-20 07:13 | disposition home or self-care (01) ==
LOC: ANHIMG 07:18
PROVIDERS: PCP Internal Medicine; Visit Provider Nurse Practitioner
DX: R93.89 Abnormal findings on diagnostic imaging of other specified body structures (principal)
CPT/HCPCS: 71046

== ENCOUNTER 2020-05-23 07:52 | Outpatient (CLI) | payer OTHER, SELFPAY ==
[2020-05-23 08:45] LABS: Alanine Aminotransferase 15 U/L (4-35); Albumin Level 3.9 g/dL (3.5-5.1); Alkaline Phosphatase 85 U/L (38-126); Anion Gap 2 mmol/L (8-16); Aspartate Amino Transferase 26 U/L (14-36); Bilirubin,Total 0.3 mg/dL (0.2-1.3); Blood Urea Nitrogen 17 mg/dL (7-17); Calcium 9.1 mg/dL (8.4-10.2); Carbon Dioxide 30 mmol/L (22-30); Chloride 109 mmol/L (98-107); Cholesterol 141 mg/dL (0-200); Estimated Glomerular Filt Rate > 60; Glucose 111 mg/dL (65-105); HDL Direct 58 mg/dL; Potassium 4.5 mmol/L (3.4-5.0); Sodium 141 mmol/L (137-145); Triglycerides 87 mg/dL (<150)
[2020-05-23 08:56] LABS: LDL Cholesterol Direct 68 mg/dL
== END 2020-05-23 07:53 | disposition home or self-care (01) ==
PROVIDERS: PCP Internal Medicine; Visit Provider Internal Medicine
DX: E78.5 Hyperlipidemia, unspecified (principal); E11.9 Type 2 diabetes mellitus without complications; R60.0 Localized edema; E03.9 Hypothyroidism, unspecified
CPT/HCPCS: 36415; 80053; 80061; 83036; 84443; 85610

== ENCOUNTER 2020-05-23 07:55 | Outpatient (RCR) | payer OTHER, SELFPAY ==
[2020-03-12 13:11] LABS: INR 1.7
[2020-04-04 12:20] LABS: INR 1.6; Prothrombin Time 19.7 Seconds (11.1-14.7)
[2020-05-23 08:42] LABS: INR 1.4; Prothrombin Time 17.7 Seconds (11.1-14.7)
== END 2020-06-10 23:59 | disposition home or self-care (01) ==
LOC: ANHLAB 07:55
PROVIDERS: PCP Internal Medicine; Visit Provider Internal Medicine Cardiovascular Disease
DX: I48.91 Unspecified atrial fibrillation (principal)
CPT/HCPCS: 36415; 85610

== ENCOUNTER 2020-09-13 07:38 | Outpatient (CLI) | payer OTHER, SELFPAY ==
[2020-09-13 08:07] LABS: Hemoglobin A1C 6.3 % (<5.7)
[2020-09-13 08:08] LABS: Alanine Aminotransferase 16 U/L (4-35); Albumin Level 3.9 g/dL (3.5-5.1); Alkaline Phosphatase 99 U/L (38-126); Anion Gap 8 mmol/L (8-16); Aspartate Amino Transferase 26 U/L (14-36); Bilirubin,Total 0.2 mg/dL (0.2-1.3); Blood Urea Nitrogen 23 mg/dL (7-17); Calcium 8.8 mg/dL (8.4-10.2); Carbon Dioxide 25 mmol/L (22-30); Chloride 109 mmol/L (98-107); Cholesterol 162 mg/dL (0-200); Estimated Glomerular Filt Rate > 60; Glucose 112 mg/dL (65-105); HDL Direct 50 mg/dL; Potassium 4.3 mmol/L (3.4-5.0); Sodium 142 mmol/L (137-145); Triglycerides 103 mg/dL (<150)
[2020-09-13 08:19] LABS: LDL Cholesterol Direct 83 mg/dL
== END 2020-09-13 07:39 | disposition home or self-care (01) ==
PROVIDERS: PCP Internal Medicine; Visit Provider Nurse Practitioner
DX: E11.9 Type 2 diabetes mellitus without complications (principal); E03.9 Hypothyroidism, unspecified; E78.5 Hyperlipidemia, unspecified
CPT/HCPCS: 36415; 80053; 80061; 83036; 84443; 85610

== ENCOUNTER 2020-09-20 11:52 | Outpatient (RCR) | payer OTHER, SELFPAY ==
[2020-07-03 15:35] LABS: INR 1.7; Prothrombin Time 20.7 Seconds (11.1-14.7)
[2020-09-13 08:21] LABS: INR 1.2; Prothrombin Time 15.5 Seconds (11.1-14.7)
[2020-09-20 12:13] LABS: INR 2.1; Prothrombin Time 24.3 Seconds (11.1-14.7)
== END 2020-10-01 23:59 | disposition home or self-care (01) ==
LOC: ANHLAB 11:52
PROVIDERS: PCP Internal Medicine; Visit Provider Internal Medicine Cardiovascular Disease
DX: I48.0 Paroxysmal atrial fibrillation (principal)
CPT/HCPCS: 36415; 85610

== ENCOUNTER 2020-10-14 11:53 | Outpatient (RCR) | payer OTHER, SELFPAY ==
[2020-10-14 12:25] LABS: INR 2.4; Prothrombin Time 25.2 Seconds (11.1-14.7)
== END 2021-01-12 23:59 | disposition home or self-care (01) ==
LOC: ANHLAB 11:53
PROVIDERS: PCP Internal Medicine; Visit Provider Internal Medicine Cardiovascular Disease
DX: I48.0 Paroxysmal atrial fibrillation (principal)
CPT/HCPCS: 36415; 85610

== ENCOUNTER 2020-10-15 13:56 | Outpatient (CLI) | payer OTHER, SELFPAY ==
--- NOTE | ~2020-10-15 | US_ITS ---
EXAMINATION: US venous doppler LE RT EXAM DATE: 10/15/2020 14:59 INDICATION: M79.604 - Pain in right leg . TECHNIQUE: Multiple grayscale, color flow and Doppler images of the right lower extremity deep venous system were obtained and reviewed. There is no prior study for comparison. FINDINGS: The right common femoral, femoral and profunda veins demonstrate normal color flow, respira tory variation, augmentation and compressibility. Compressibility, color flow confirmed within the r ight popliteal, posterior tibial, peroneal, and greater saphenous veins. Scanning in images labeled right lateral thigh area of concern bruises demonstrates no sonographic abnormality. IMPRESSION: 1. No right lower extremity deep venous thrombosis. Reviewed, dictated and finalized at location A.
[2020-10-15 14:42] LABS: Alanine Aminotransferase 23 U/L (4-35); Albumin Level 4.4 g/dL (3.5-5.1); Alkaline Phosphatase 127 U/L (38-126); Anion Gap 11 mmol/L (8-16); Aspartate Amino Transferase 33 U/L (14-36); Bilirubin,Total 0.6 mg/dL (0.2-1.3); Blood Urea Nitrogen 17 mg/dL (7-17); Calcium 9.9 mg/dL (8.4-10.2); Carbon Dioxide 24 mmol/L (22-30); Chloride 106 mmol/L (98-107); Estimated Glomerular Filt Rate > 60; Glucose 137 mg/dL (65-110); Potassium 4.2 mmol/L (3.4-5.0); Sodium 141 mmol/L (137-145)
[2020-10-15 16:38] LABS: IFOB Positive Control Positive; Immunochemical Fecal Occult Bl Negative (N)
== END 2020-10-15 13:57 | disposition home or self-care (01) ==
LOC: ANHIMG 13:58
PROVIDERS: PCP Internal Medicine; Visit Provider Nurse Practitioner
DX: M79.604 Pain in right leg (principal); R19.7 Diarrhea, unspecified
CPT/HCPCS: 36415; 80053; 82274; 87045; 87046; 87324; 87427; 93971

== ENCOUNTER 2020-11-18 15:57 | Outpatient (CLI) | payer OTHER, SELFPAY ==
[2020-11-18 16:15] LABS: Hematocrit 45.2 % (37.0-47.0); Hemoglobin 14.5 g/dL (12.0-15.0); Mean Corpuscular HGB Conc 32.1 g/dl (32-36); Mean Corpuscular Hemoglobin 27.6 pg (26-34); Mean Corpuscular Volume 86.1 fl (80-100); Mean Platelet Volume 9.7 fl (7.4-10.4); Platelet Count Result 354 k/mm3 (150-375); Red Blood Count 5.25 M/mm3 (4.2-5.4); Red Cell Distribution Width 16.5 % (11.5-14.5); White Blood Count 10.8 K/mm3 (4.5-10.0)
[2020-11-18 16:45] LABS: INR 0.9; Prothrombin Time 11.6 Seconds (11.1-14.7)
== END 2020-11-18 15:58 | disposition home or self-care (01) ==
PROVIDERS: PCP Internal Medicine; Visit Provider Internal Medicine Hematology & Oncology
DX: D69.9 Hemorrhagic condition, unspecified (principal)
CPT/HCPCS: 36415; 85027; 85610; 85730

== ENCOUNTER 2021-01-03 10:10 | Outpatient (CLI) | payer OTHER, SELFPAY ==
--- NOTE | ~2021-01-03 | MM_ITS ---
EXAMINATION: MM screening [facility] HISTORY: Screening mammogram TECHNIQUE: Craniocaudal and mediolateral oblique 3-D tomosynthesis images were obtained and synthetic 2-D images were generated. CAD analysis was submitted and interpreted. COMPARISON: 01/02/2020, 03/04/2018, 10/12/2014 BREAST PARENCHYMAL COMPOSITION: The breasts are almost entirely fatty. FINDINGS: There is no evidence of suspicious mass, calcification, or architectural distortion to sugg est malignancy in either breast. There has been no suspicious interval change. IMPRESSION: 1. No mammographic evidence of malignancy. 2. Recommend routine screening mammography in one year. BI-RADS Category 1: Negative Reviewed, dictated and finalized at location A.
== END 2021-01-03 10:11 | disposition home or self-care (01) ==
LOC: ANHIMG 10:13
PROVIDERS: PCP Internal Medicine; Visit Provider Nurse Practitioner
DX: Z12.31 Encounter for screening mammogram for malignant neoplasm of breast (principal)
CPT/HCPCS: 77063; 77067

== ENCOUNTER 2021-04-10 10:47 | Outpatient (CLI) | payer OTHER, SELFPAY ==
--- NOTE | ~2021-04-10 | XR_ITS ---
EXAMINATION: XR thoracic spine 2V EXAM DATE: 04/10/2021 11:22 INDICATION: M54.9 - Dorsalgia, mid and low back pain. TECHNIQUE: Frontal and lateral projections thoracic spine. Comparison is made to prior examination f rom 10/16/2016. FINDINGS: There is mild mid thoracic disc disease. The vertebral body heights are maintained. The ve rtebral bodies are aligned in the AP dimension. No endplate erosive change. There are cholecystectomy clips. Minimal upper thoracic levoscoliosis, mid thoracic dextroscoliosis. IMPRESSION: 1. Mild mid thoracic disc disease. 2. Minimal scoliosis. Reviewed, dictated and finalized at location A. MOTIVE TECHNICIAN
--- NOTE | ~2021-04-10 | XR_ITS ---
EXAMINATION: XR lumbar spine 2-3V EXAM DATE: 04/10/2021 11:21 INDICATION: M54.9 - Dorsalgia. Low back pain. TECHNIQUE: Lumber spine frontal, lateral, lateral L5-S1 projections for interpretation. There is no prior study for comparison. FINDINGS: There is moderate disc disease L5-S1, mild to moderate at L1-2 and mild at the mid lumbar levels. The vertebral bodies are aligned in the AP dimension. Vertebral body heights are maintained. Mild upper lumbar, moderate lower lumbar facet arthropathy. Sacrum, sacroiliac joints, sacral arcuate lines are intact. Paraspinal soft tissue is unremarkable. There are no acute fractures identified. IMPRESSION: Moderate lower lumbar facet arthropathy and L5-S1 disc disease. Reviewed, dictated and finalized at location A. OFFICE WORKER
--- NOTE | ~2021-04-10 | XR_ITS ---
EXAMINATION: XR_CERV2-3V_CR EXAM DATE: 04/10/2021 11:22 INDICATION: No known recent injury provided at this time. Pain of the cervical spine. Cervicalgia. TECHNIQUE: Cervical spine frontal, lateral, lateral swimmers, and open-mouth odontoid projections. C omparison is made to prior examination from 05/10/2014. FINDINGS: There is no evidence of acute cervical fracture. The odontoid process is intact. Pre-dens space is normal. Prevertebral soft tissue is normal. There are no soft tissue abnormalities identi fied. There is moderate loss of the C5-6 and 6-7 disc height, mild to moderate at C4-5. There is mil d to moderate cervical arthropathy. These degenerative changes have demonstrated mild progression com pared to 2015. Cervical straightening is unchanged. The vertebral bodies are aligned. Lung apices are clear. IMPRESSION: 1. Mild to moderate cervical spondylosis. Reviewed, dictated and finalized at location A. NING SUPERVISOR
== END 2021-04-10 10:48 | disposition home or self-care (01) ==
LOC: ANHIMG 10:50
PROVIDERS: PCP Internal Medicine; Visit Provider Nurse Practitioner
DX: M54.2 Cervicalgia (principal); M54.9 Dorsalgia, unspecified; M51.87 Other intervertebral disc disorders, lumbosacral region; M43.8X6 Other specified deforming dorsopathies, lumbar region; M51.84 Other intervertebral disc disorders, thoracic region; M41.84 Other forms of scoliosis, thoracic region; M47.812 Spondylosis without myelopathy or radiculopathy, cervical region
CPT/HCPCS: 72040; 72070; 72100

== ENCOUNTER 2021-05-19 12:30 | Emergency (ER) | payer OTHER, SELFPAY ==
--- NOTE | ~2021-05-19 | XR_ITS ---
EXAMINATION: XR knee RT 3V EXAM DATE: 05/19/2021 13:57 INDICATION: knee keeps giving out is painfull/no known trauma. TECHNIQUE: Right knee frontal, crosstable lateral, orthogonal oblique projections for interpretation . Comparison is made to prior examination from 04/13/2019. FINDINGS: No evidence osteochondral defect or joint body in the right knee joint. There is moderate primary osteoarthritis. There are no acute fractures or dislocations identified. There is no subcut aneous gas. There is small joint effusion. There are no radiopaque foreign bodies. IMPRESSION: 1. Small right knee joint effusion. 2. Moderate osteoarthritis. Reviewed, dictated and finalized at location A. 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
[2021-05-19 13:00] VITALS: BP 136/71; PULSE 72; RESP 20; TEMP 36.7; O2SAT 98
--- NOTE | 2021-05-19 13:29 | ED.LOWEXIN ---
HPI - Extremity Injury (Lower) General Chief Complaint: Extremity Injury, Lower Stated Complaint: Rt Knee Pain Time Seen by Provider: 05/19/21 13:25 Source: patient, RN notes reviewed and old records reviewed Mode of arrival: ambulatory Limitations: no limitations History of Present Illness HPI Narrative: 60-year-old female who presents to [facility] with complaints of right knee giving out on her 4 times yesterday denies falling. Patient states over the past year she has had some episodes with her right knee giving out and having some discomfort to her distal knee region but intermittent occurrences till yesterday. Patient reports that when her knee gives out she has severe pain to distal knee region on the right. Patient denies any falls has been using crutches for support since yesterday. She reports that she has seen an ortho in the past and was told she needed to lose weight. Patient reports that she has not had any recent injury to her knee, no acute swelling noted. MD complaint: other (knee pain with knee giving out on her) Onset (ago): day(s) (1) Type of Injury: other (No known injury) Exacerbating factors: weight bearing and movement Related Data Allergies Allergy/AdvReac Type Severity Reaction Status Date / Time clarithromycin Allergy Mild Nausea and Verified 04/10/21 08:44 Vomiting hydrocodone Allergy Mild NAUSEA/ITCH Verified 04/10/21 08:44 ING Macrolide Antibiotics Allergy Mild Nausea and Verified 04/10/21 08:44 Vomiting amoxicillin [From Augmentin] AdvReac Intermediate Vomiting Verified 04/10/21 08:44 clavulanic acid AdvReac Intermediate Vomiting Verified 04/10/21 08:44 [From Augmentin] Review of Systems Review of Systems: CONSTITUTIONAL: Denies fever, chills, or sweats. EYES: Denies visual changes, redness, or discharge. ENT: Denies rhinorrhea, congestion, sore throat, or otalgia. CARDIOVASCULAR: Denies chest pain, palpitations, or edema. RESPIRATORY: Denies cough or dyspnea. GASTROINTESTINAL: Denies abdominal pain, nausea, vomiting, or diarrhea. GENITOURINARY: Denies dysuria or hematuria. SKIN: Denies rash or itching. MUSCULOSKELETAL: Chronic back pain,right knee joint pain and instability, or myalgia. NEUROLOGIC: Denies headache, numbness, or weakness. PSYCHIATRIC: Positive history of anxiety or depression. All systems reviewed & are unremarkable except as noted in HPI and below PMFSH Past Medical History Medical History Anxiety Arthritis Asthma Bilateral ankle fractures Bronchitis Chronic back pain Depression Diabetes DVT prophylaxis Dyslipidemia Edema of both lower extremities Fibromyalgia GERD (gastroesophageal reflux disease) Headache, migraine Hemorrhoids History of angina Hypokalemia Hypothyroidism IBS (irritable bowel syndrome) Morbid obesity with BMI of 45.0-49.9, adult AVINASH (obstructive sleep apnea) Osteoporosis PAF (paroxysmal atrial fibrillation) Peripheral neuropathy Person under investigation for COVID-19 Pneumonia Post-menopausal Screening for breast cancer Screening for colon cancer Screening for osteoporosis Sinus infection Thyroid disease UTI (urinary tract infection) Vertigo Surgical History Surgical History H/O wrist surgery History of ankle surgery History of carpal tunnel release History of cholecystectomy History of endometrial ablation Family History Family History Father Diabetes mellitus Hypertension Family history of lung cancer Family history of malignant neoplasm of kidney Family history of diabetes mellitus in first degree relative Mother Family history of osteoporosis Hypertension Family history of arthritis Other Family history of malignant neoplasm Social History Social History Smoking status: Never smoke
== END 2021-05-19 14:40 | disposition home or self-care (01) ==
PROVIDERS: Emergency Provider Registered Nurse; PCP Internal Medicine
DX: M17.11 Unilateral primary osteoarthritis, right knee (principal); J45.909 Unspecified asthma, uncomplicated; E11.9 Type 2 diabetes mellitus without complications; M79.7 Fibromyalgia; K21.9 Gastro-esophageal reflux disease without esophagitis; I20.9 Angina pectoris, unspecified; E03.9 Hypothyroidism, unspecified; E66.01 Morbid (severe) obesity due to excess calories; Z68.42 Body mass index [BMI] 45.0-49.9, adult; M81.0 Age-related osteoporosis without current pathological fracture; I48.0 Paroxysmal atrial fibrillation; F41.9 Anxiety disorder, unspecified; Z79.01 Long term (current) use of anticoagulants
CPT/HCPCS: 73562; 99213; G0463

== ENCOUNTER 2021-08-20 07:46 | Outpatient (CLI) | payer OTHER, SELFPAY ==
[2021-08-20 08:24] LABS: Hemoglobin 15.2 g/dL (12.0-15.0); Mean Corpuscular HGB Conc 31.7 g/dl (32-36); Mean Corpuscular Hemoglobin 27.8 pg (26-34); Mean Corpuscular Volume 87.8 fl (80-100); Mean Platelet Volume 9.7 fl (7.4-10.4); Platelet Count Result 341 k/mm3 (150-375); Red Blood Count 5.47 M/mm3 (4.2-5.4); Red Cell Distribution Width 18.3 % (11.5-14.5)
[2021-08-20 08:43] LABS: Alanine Aminotransferase 17 U/L (6-35); Albumin Level 4.3 g/dL (3.5-5.1); Alkaline Phosphatase 103 U/L (38-126); Anion Gap 7 mmol/L (8-16); Aspartate Amino Transferase 23 U/L (14-36); Bilirubin,Total 0.7 mg/dL (0.2-1.3); Blood Urea Nitrogen 21 mg/dL (7-17); Carbon Dioxide 26 mmol/L (22-30); Chloride 103 mmol/L (98-107); Cholesterol 180 mg/dL (0-200); Estimated Glomerular Filt Rate > 60; Glucose 122 mg/dL (65-110); HDL Direct 57 mg/dL; Potassium 4.4 mmol/L (3.4-5.0); Sodium 136 mmol/L (137-145); Triglycerides 80 mg/dL (<150)
[2021-08-20 08:54] LABS: LDL Cholesterol Direct 95 mg/dL
[2021-08-20 08:58] LABS: Hemoglobin A1C 6.5 % (<5.7)
[2021-08-23 04:08] LABS: FSH 33.9 mIU/mL (***); LH 15.4 mIU/mL (***)
[2021-08-26 22:12] LABS: Estradiol, Ultrasensitive 5 pg/mL
== END 2021-08-20 07:47 | disposition home or self-care (01) ==
PROVIDERS: PCP Internal Medicine; Referring Provider Nurse Practitioner Obstetrics & Gynecology; Visit Provider Nurse Practitioner
DX: R53.83 Other fatigue (principal); E03.9 Hypothyroidism, unspecified; E78.5 Hyperlipidemia, unspecified; E11.9 Type 2 diabetes mellitus without complications; N93.9 Abnormal uterine and vaginal bleeding, unspecified
CPT/HCPCS: 36415; 80053; 80061; 82670; 83001; 83002; 83036; 84443; 85027

== ENCOUNTER 2021-09-15 13:55 | Emergency (ER) | payer OTHER, SELFPAY ==
--- NOTE | ~2021-09-15 | CT_ITS ---
EXAMINATION: CT brain wo con DATE: 09/15/2021 14:43 INDICATION: pool injury . TECHNIQUE: Computed tomography (CT) of the head was performed without intravenous contrast. The mA wa s adjusted according to patient size. Iterative reconstruction technique was employed. The dose-lengt h product was 529.67 mGy-cm. COMPARISON: 02/21/2020. FINDINGS: No acute intracranial hemorrhage or extra-axial fluid collection. No hydrocephalus, mass, or herniation. No acute ischemic infarct. Unremarkable dural venous sinus attenuation. No acute osseous abnormality. The aerated spaces are clear. Mild intracranial arterial calcification. IMPRESSION: No acute intracranial process. Reviewed, dictated and finalized at location K.
--- NOTE | ~2021-09-15 | XR_ITS ---
EXAMINATION: XR chest 1V, XR thoracic spine 3V DATE: 09/15/2021 15:01 INDICATION: Diving injury hitting the site of a pool and presenting with head and neck pain and decre ased cervical range of motion . TECHNIQUE: 1. AP view of the chest was obtained. 2. AP, lateral and lateral swimmer's views of the thoracic spine were obtained. COMPARISON: Chest radiograph dated 03/20/20 FINDINGS: Chest: The lungs remain clear with no focal airspace opacities, pulmonary edema, pleural effusion or pneumot horax. The cardiomediastinal silhouette is normal. Cholecystectomy clips in right upper quadrant. Thoracic spine: Mild thoracolumbar levocurvature. Sagittal alignment is normal. Unchanged minimal anterior wedging of a midthoracic vertebral body, likely T7. Remaining vertebral body heights are normal. No fractures i dentified. Multilevel disc height loss with degenerative endplate osteophytes, mild to moderate sever ity in the lower cervical spine and at L1-L2 and mild in the mid to lower thoracic spine. IMPRESSION: 1. No acute cardiopulmonary disease. 2. Mild thoracic and mild to moderate lower cervical and upper lumbar spondylosis. Reviewed, dictated and finalized at location B. IMPRESSION: 1. No acute cardiopulmonary disease. 2. Mild thoracic and mild to moderate lower cervical and upper lumbar spondylos is.
--- NOTE | ~2021-09-15 | CT_ITS ---
EXAMINATION: CT cervical spine wo con DATE: 09/15/2021 14:43 INDICATION: pool injury TECHNIQUE: Computed tomography (CT) of the cervical spine was performed without intravenous contrast. Automated exposure control and iterative reconstruction technique were employed. The dose-length pro duct was 491.73 mGy-cm. COMPARISON: None FINDINGS: Vertebral Body Alignment: Intact. Craniocervical and atlantoaxial alignment: Mild degenerative change. Alignment intact. Osseous structures/fracture: No evidence of a lytic or blastic process in the visualized spine. No e vidence of acute fracture. Cervical soft tissues: The paraspinal soft tissues planes are maintained. Degenerative changes: Degenerative changes, without severe neural foraminal or central canal narrowin g. IMPRESSION: No acute fracture or traumatic malalignment in the cervical spine. Reviewed, dictated and finalized at location K.
[2021-09-15 13:59] VITALS: BP 146/86; PULSE 62; RESP 16; TEMP 36.2; O2SAT 98
[2021-09-15] MEDS: IBUPROFEN 600 MG TABLET PO (14:25)
--- NOTE | 2021-09-15 15:29 | ED.GENADULT ---
HPI - General Adult General Chief complaint: Head Injury Stated complaint: head injury Time Seen by Provider: 09/15/21 14:06 Source: RN notes reviewed History of Present Illness HPI narrative: Patient presents emergency department from home for head and neck pain. Patient states that yesterday she was trying to do a flip into a swimming pool and hit hit her head on either the bottom for the side of the pool when she went in states since that time she had pain in her head and her neck states the pain in her neck is worse with turning it bilaterally she also states she has some pain in her upper back she denies any loss of consciousness she denies any chest pain shortness of breath numbness or tingling in the extremities vision changes or any other symptoms states she not taking medication for the pain at home Related Data Home Medications Medication Instructions Recorded Confirmed cetirizine 10 mg tablet 10 mg PO DAILY 05/19/21 08/05/21 diltiazem HCl 120 mg capsule,24 See Rx Instructions .Route 05/19/21 08/05/21 hr,extended release (Tiadylt ER) .COMPLEX PRN Blood Pressure Allergies Allergy/AdvReac Type Severity Reaction Status Date / Time hydrocodone Allergy Mild NAUSEA/ITCH Verified 09/15/21 14:02 ING clavulanic acid AdvReac Intermediate Vomiting Verified 09/15/21 14:02 [From Augmentin] clarithromycin AdvReac Mild Nausea and Verified 09/15/21 14:17 Vomiting Macrolide Antibiotics AdvReac Mild Nausea and Verified 09/15/21 14:17 Vomiting Review of Systems Review of Systems: Gen.: Denies fevers or chills Eyes: Denies eye pain or visual change ENT: Denies congestion Respiratory: Denies shortness of breath or cough CV: Denies chest pain or palpitations GI: Denies abdominal pain nausea, emesis Musculoskeletal: See HPI Neuro: Denies numbness, tingling, weakness or focal weakness Skin: Denies rash Except as documented, all other systems reviewed and negative [facility] Past Medical History Medical History Anxiety Arthritis Asthma Bilateral ankle fractures Bronchitis Chronic back pain Depression Diabetes DVT prophylaxis Dyslipidemia Edema of both lower extremities Fibromyalgia GERD (gastroesophageal reflux disease) Headache, migraine Hemorrhoids History of angina Hypokalemia Hypothyroidism IBS (irritable bowel syndrome) Morbid obesity with BMI of 45.0-49.9, adult AVINASH (obstructive sleep apnea) Osteoporosis PAF (paroxysmal atrial fibrillation) Peripheral neuropathy Person under investigation for COVID-19 Pneumonia Post-menopausal Screening for breast cancer Screening for colon cancer Screening for osteoporosis Sinus infection Thyroid disease UTI (urinary tract infection) Vertigo Surgical History Surgical History H/O wrist surgery History of ankle surgery History of carpal tunnel release History of cholecystectomy History of endometrial ablation Family History Family History Father Diabetes mellitus Hypertension Family history of lung cancer Family history of malignant neoplasm of kidney Family history of diabetes mellitus in first degree relative Mother Family history of osteoporosis Hypertension Family history of arthritis Other Family history of malignant neoplasm Social History Social History Second hand tobacco smoke exposure: No Alcohol intake: current Alcohol use details: social Substance use: never Substance use type: does not use Additional living arrangements comments: with mother. Additional occupation/education comments: Disabled Gender identity (if verbalized by the patient): Female Sexual Orientation (if Verbalized by the Patient): Straight or Heterosexual Spiritual care concerns: No Agree to blood products: Yes
== END 2021-09-15 15:38 | disposition home or self-care (01) ==
PROVIDERS: Emergency Provider Emergency Medicine; PCP Internal Medicine
DX: S00.93XA Contusion of unspecified part of head, initial encounter (principal); S16.1XXA Strain of muscle, fascia and tendon at neck level, initial encounter; S29.9XXA Unspecified injury of thorax, initial encounter; E11.42 Type 2 diabetes mellitus with diabetic polyneuropathy; I48.0 Paroxysmal atrial fibrillation; J45.909 Unspecified asthma, uncomplicated; E78.5 Hyperlipidemia, unspecified; E03.9 Hypothyroidism, unspecified; M19.90 Unspecified osteoarthritis, unspecified site; M81.0 Age-related osteoporosis without current pathological fracture; M79.7 Fibromyalgia; K21.9 Gastro-esophageal reflux disease without esophagitis; G47.33 Obstructive sleep apnea (adult) (pediatric); F41.9 Anxiety disorder, unspecified; F32.A Depression, unspecified; Z87.01 Personal history of pneumonia (recurrent); Z87.440 Personal history of urinary (tract) infections; Z79.82 Long term (current) use of aspirin; Z79.84 Long term (current) use of oral hypoglycemic drugs; M47.816 Spondylosis without myelopathy or radiculopathy, lumbar region; M47.812 Spondylosis without myelopathy or radiculopathy, cervical region; M47.814 Spondylosis without myelopathy or radiculopathy, thoracic region
CPT/HCPCS: 70450; 71045; 72072; 72125; 99284; A9270

== ENCOUNTER 2021-10-29 00:36 | Day surgery (SDC) | payer OTHER, SELFPAY ==
[2021-10-22 11:02] VITALS: BMI 47.5
--- NOTE | 2021-10-22 11:11 | PC.NURSE ---
Report to the Outpatient Waiting Room, entrance under the green pavilion located off [facility], at time 0830 on date 10/29/21. OR Time: 1030. - You and your visitor will be asked a series of questions to screen for COVID 19 for your protection. - Only one visitor is allowed at this time. - The patient visitor is requested to leave or wait in car when not with patient. - A mask is required within the hospital. Patients may have clear liquids (water, carbonated beverages, clear teas, apple juice) until 3 hours prior to surgery with a maximum of 20 ounces. - No food from midnight until time of surgery Take the following medications with a SIP of water the morning of surgery: ALPRAZOLAM AND DIAZEPAM (IF NEEDED), CITALOPRAM, DILTIAZEM, GABAPENTIN, LEVOTHYROXINE Medications to discontinue per physician: ABDOUL Date to take last dose: PER DR. STAPLETON Please no make-up, nail monegasque, hairspray, perfume, deodorant, or body powder the day of surgery. No jewelry (including any body piercings) or valuables the day of surgery, leave them at home. Please take a shower or bath the night before, or the morning of, surgery with an antibacterial soap. Wear comfortable, loose fitting clothing. - Jewelry must be removed prior to entering the operating room. Rings and piercings that are not removed may be cut off. - The hospital will not accept responsibility for valuables. - Please leave all valuables, including medications, at home the day of surgery. If you are going home after surgery, a licensed courier delivery driver must drive you home. - NO public transportation without another adult. - We recommend that an adult stay with you for 24 hours following discharge. - We also recommend that you do not drive, make important decision, drink alcoholic beverages, or take any drugs that were not prescribed by your health care provider for at least 24 hours after your discharge time. Follow any additional instructions given to you from your surgeon. If you or anyone in your household have experienced Covid symptoms in the past week, please notify your surgeon or the nurse liaison at the phone number below for possible testing. Telephone instructions given to PT - GEORGE JUDD and asked if any additional questions and then verbalized understanding. Patient advised to call surgeon office or pre surgery nurse liaison [phone] if any additional questions.
--- NOTE | 2021-10-28 15:06 | WPDANESEPPF ---
Anes - Initial Pre Proc Eval Procedure: Operation Date: 10/29/21 10:30 Proposed Procedures p Hysteroscopy, Endometrium Biopsy with Possible Polypectomy - Jackson Madison MD Date/Time: 10/28/21 15:06 Surgeon: Jackson Madison MD Pre Op Diagnosis: lesion of endometrium Patient Data Age: 60 Gender: F Height: 1.65 m Weight: 129.73 kg Allergies Allergy/AdvReac Type Severity Reaction Status Date / Time clavulanic acid AdvReac Intermediate Vomiting Verified 10/29/21 09:04 [From Augmentin] clarithromycin AdvReac Mild Vomiting Verified 10/29/21 09:04 hydrocodone AdvReac Mild NAUSEA/ITCH Verified 10/29/21 09:04 ING Macrolide Antibiotics AdvReac Mild Vomiting Verified 10/29/21 09:04 Home Medications Medication Instructions Recorded Confirmed Type pen needle, diabetic 31 gauge x #100 ea 06/25/20 10/08/21 Rx 3/16 (BD Ultra-Fine Mini Pen Needle) blood sugar diagnostic (OneTouch #50 ea 11/18/20 10/08/21 Rx Verio test strips) blood-glucose meter (OneTouch #1 ea 11/18/20 10/08/21 Rx Verio Flex Meter) lancets #100 ea 11/18/20 10/08/21 Rx methocarbamol 750 mg tablet 750 mg PO BID #60 tabs 01/07/21 10/29/21 Rx semaglutide 1 mg/dose (2 mg/1.5 1 mg (0.75 mL) subcut WEEKLY #3 mL 01/30/21 10/29/21 Rx mL) subcutaneous pen injector ([employer]) cetirizine 10 mg tablet 10 mg PO DAILY 05/19/21 10/29/21 History diltiazem HCl 120 mg capsule,24 120 mg PO DAILY PRN Blood Pressure 05/19/21 10/29/21 History hr,extended release (Tiadylt ER) diazepam 2 mg tablet (Valium) 2 mg PO BID Anxiety #20 tabs 06/27/21 10/29/21 Rx levothyroxine 112 mcg tablet 112 mcg PO DAILY #90 tabs 07/23/21 10/29/21 Rx azelastine 0.05 % eye drops 1 drp EACH EYE BID PRN allergies 08/05/21 10/29/21 Rx #6 mL apixaban 5 mg tablet (Eliquis) 5 mg PO BID #180 tabs 08/27/21 10/29/21 Rx alprazolam 0.5 mg tablet (Xanax) 0.5 mg PO DAILY PRN anxiety #30 10/07/21 10/29/21 Rx tabs gabapentin 600 mg tablet 600 mg PO BID PRN fibromyalgia 10/15/21 10/29/21 Rx pain #180 tabs omeprazole 40 mg capsule,delayed 40 mg PO DAILY #90 caps 10/15/21 10/29/21 Rx release citalopram 40 mg tablet 40 mg PO DAILY 10/29/21 10/29/21 History empagliflozin 10 mg tablet 10 mg PO DAILY 10/29/21 10/29/21 History (Jardiance) fluticasone propionate 50 2 spray intranasal DAILY 10/29/21 10/29/21 History mcg/actuation nasal spray,suspension oxybutynin chloride 5 mg tablet 5 mg PO DAILY 10/29/21 10/29/21 History simvastatin 20 mg tablet 10 mg PO DAILY 10/29/21 10/29/21 History tizanidine 4 mg tablet 4 mg PO HS 10/29/21 10/29/21 History Patient hx anesthesia problems: none Family hx anesthesia problems: none Results Review: All pre-operative results and documents have been reviewed as part of the pre-operative evaluation. [facility] Past Medical History Medical History Anxiety Arthritis Asthma Bilateral ankle fractures Bronchitis Chronic back pain Depression Diabetes DVT prophylaxis Dyslipidemia Edema of both lower extremities Fibromyalgia GERD (gastroesophageal reflux disease) Headache, migraine Hemorrhoids History of angina Hypokalemia Hypothyroidism IBS (irritable bowel syndrome) Morbid obesity with BMI of 45.0-49.9, adult AVINASH (obstructive sleep apnea) Osteoporosis PAF (paroxysmal atrial fibrillation) Peripheral neuropathy Person under investigation for COVID-19 Pneumonia Post-menopausal Screening for breast cancer Screening for colon cancer Screening for osteoporosis Sinus infection Thyroid disease UTI (urinary tract infection) Vertigo Surgical History Surgical History H/O wrist surgery History of ankle surgery History of carpal tunnel release History of cholecystectomy History of endometrial ablation Family History Family History Father Diabetes mellitus
[2021-10-29 08:42] VITALS: BP 116/84; PULSE 64; RESP 20; TEMP 36.4; O2SAT 99
[2021-10-29] MEDS: LACTATED RINGERS 1,000 ML 30 ML IV CONT (09:20)
[2021-10-29 09:26] LABS: Glucose Point of Care 115 mg/dl (65-105)
[2021-10-29] MEDS: ACETAMINOPHEN 500 MG TABLET 1000 MG PO (09:26)
[2021-10-29] MEDS: SCOPOLAMINE 1.5 MG PATCH TRANSDERM (09:28)
--- NOTE | 2021-10-29 09:43 | WPDHPUPDATE1 ---
History and Physical Update Update Date/Time: 10/29/21 09:43 History and Physical has been reviewed, including an updated exam of the patient. There are NO changes in the patient's condition. Risks, benefits, and alternatives have been discussed and questions answered. Patient agrees to proceed with procedure.
[2021-10-29 10:43] VITALS: BP 113/67; PULSE 58; RESP 12; O2SAT 91
--- NOTE | 2021-10-29 10:49 | P.OP_ITS ---
Procedure Note - Detailed Date of Procedure 10/29/21 Pre-op Diagnosis lesion of endometrium, post menopausal bleeding Post-op Diagnosis Same Procedure Performed Hysteroscopy D&C with polypectomy Surgeon Jackson Madison MD Anesthesia MAC Indications abnormal uterine bleeding, endometrial lesion Findings To moderate-sized endometrial polyps Description of Procedure the patient was taken the operating room. She was prepped and draped in the dorsal lithotomy position after induction of mac anesthesia. A speculum was placed in the vagina. The cervix was grasped with a tenaculum. The cervix was dilated about 1 cm. The hysteroscope was inserted. The intrauterine cavity and endocervix were evaluated. Hysteroscope was withdrawn. A medium-size curette was used to curettage all the surfaces were within the endometrial cavity. the sample was collected on Telfa and sent to pathology. To moderate- sized endometrial polyps were removed. They were transected at their base by with scissors. There were taken out but 1 was lost in the drainage pouch. The hysteroscope was reinserted and the above findings were noted. Patient tolerated the procedure well. The speculum and tenaculum were removed. She was taken recovery room in stable condition. Sponge lap and needle counts were correct x2. Estimated Blood Loss 10 Drains No Packing No Pathology Yes Complications No immediate complications Condition Stable Disposition PACU
[2021-10-29 11:10] VITALS: BP 106/55; PULSE 54; RESP 12; O2SAT 92
== END 2021-10-29 11:43 | disposition home or self-care (01) ==
PROVIDERS: PCP Internal Medicine; Visit Provider Obstetrics & Gynecology
PROC: 0U5B8ZZ Destruction of Endometrium, Via Natural or Artificial Opening Endoscopic (ICD-10-PCS; CPT 58563; principal; 2021-10-29 10:30)
DX: N95.0 Postmenopausal bleeding (principal); N84.0 Polyp of corpus uteri; I48.0 Paroxysmal atrial fibrillation; E03.9 Hypothyroidism, unspecified; G47.33 Obstructive sleep apnea (adult) (pediatric); M79.7 Fibromyalgia; F41.9 Anxiety disorder, unspecified; F32.A Depression, unspecified; E78.5 Hyperlipidemia, unspecified; K21.9 Gastro-esophageal reflux disease without esophagitis; K58.9 Irritable bowel syndrome, unspecified; M81.0 Age-related osteoporosis without current pathological fracture; E11.42 Type 2 diabetes mellitus with diabetic polyneuropathy; Z79.01 Long term (current) use of anticoagulants; Z79.899 Other long term (current) drug therapy; Z79.84 Long term (current) use of oral hypoglycemic drugs; E66.9 Obesity, unspecified; Z68.42 Body mass index [BMI] 45.0-49.9, adult
CPT/HCPCS: 58558; 82948; 88305; A9270; J1100; J2250; J2405; J2704; J3010; J7030; J7120

== ENCOUNTER 2021-12-02 13:30 | Outpatient (RCR) | payer OTHER, SELFPAY ==
--- NOTE | 2021-11-03 16:28 | PTOPEVAL ---
PHYSICAL THERAPY EVALUATION AND PLAN OF CARE Thank you for referring Rhonda Millan to [facility].? The patient is scheduled to be seen for therapy? 2x/week for 4 weeks. Please review, sign, date and return this plan of care DENI. I agree with and certify that the following plan of care is medically necessary. Referring Physician Date Attending Provider: Nohelia Ospina, OUTREACH LIBRARIAN-C Diagnosis neck pain Onset 2months Subjective Information Reports severe neck pain; Query Text:As Reported By Patient/ reports that she accidentally Family fell into a pool and hit her head on the floor or the wall and immediately felt a jolt down her spine and has had constant pain in her head and neck. pain in upper part of back. states pain with rotation and extension. Self Report Pain Assessment Spine, Cervical Reported Pain Level 7 Pain Description Aching,Throbbing,With Movement Pain Frequency Acute,Continuous Greatest Pain Intensity 10 Pain Score Pain Score 7: Self Report Interventions Used Interventions Used By Clinicians Exercise,Joint Mobilization Pain Relief Interventions Used By Heat,Ice,Medication Patient Cervical and Lumbar ROM Cervical ROM Cervical Flexion (0-60) 40 Query Text:Active in Degrees Cervical Extension (0-70) 45 Query Text:Active in Degrees Cervical Rotation Right (0-90) 50 Query Text:Active in Degrees Cervical Rotation Left (0-90) 45 Query Text:Active in Degrees Cervical ROM Comments reports pain on right side of neck with either rotation Upper Extremity Range of Motion General Upper Extremity Range of Motion Reason Not Measured WFL/Left,WFL/Right Upper Extremity Muscle Strength Testing General Upper Extremity Strength Gross Upper Extremity Strength Comments generally WFL; left is slightly weaker compared to right Posture Posture Sitting Position Head/C-Spine Posture Excess Extension,Forward Head Thoracic Spine Posture Increased Kyphosis Shoulder Posture (L) Rounded,(R) Rounded,(L) Forward,(R) Forward Palpation Assessment Palpation Palpation significant tightness to suboccipitals and bilateral upper trapezius; PT Clinical Summary Mary is a 60 yo female presenting to outpatient physical therapy with subacute
--- NOTE | 2021-11-05 08:04 | PTOPEVAL ---
PHYSICAL THERAPY EVALUATION AND PLAN OF CARE Thank you for referring Rhonda Millan to [facility].? The patient is scheduled to be seen for therapy?2x/week for 4 weeks. Please review, sign, date and return this plan of care DENI. I agree with and certify that the following plan of care is medically necessary. Referring Physician Date Attending Provider: Harshil Santizo MD Diagnosis neck pain Onset 2months Subjective Information Reports severe neck pain; Query Text:As Reported By Patient/ reports that she accidentally Family fell into a pool and hit her head on the floor or the wall and immediately felt a jolt down her spine and has had constant pain in her head and neck. pain in upper part of back. states pain with rotation and extension. Self Report Pain Assessment Spine, Cervical Reported Pain Level 7 Pain Description Aching,Throbbing,With Movement Pain Frequency Acute,Continuous Greatest Pain Intensity 10 Cervical ROM Cervical Flexion (0-60) 40 Query Text:Active in Degrees Cervical Extension (0-70) 45 Query Text:Active in Degrees Cervical Rotation Right (0-90) 50 Query Text:Active in Degrees Cervical Rotation Left (0-90) 45 Query Text:Active in Degrees Cervical ROM Comments reports pain on right side of neck with either rotation Upper Extremity Range of Motion General Upper Extremity Range of Motion Reason Not Measured WFL/Left,WFL/Right Upper Extremity Muscle Strength Testing General Upper Extremity Strength Gross Upper Extremity Strength Comments generally WFL; left is slightly weaker compared to right Posture Sitting Position Head/C-Spine Posture Excess Extension,Forward Head Thoracic Spine Posture Increased Kyphosis Shoulder Posture (L) Rounded,(R) Rounded,(L) Forward,(R) Forward Palpation significant tightness to suboccipitals and bilateral upper trapezius; PT Clinical Summary Mary is a 60 yo female presenting to outpatient physical therapy with subacute neck pain after a fall into a pool hitting her head on the concrete. she presents today with decreased cervical ROM with pain and demonstrates
--- NOTE | 2021-11-07 12:41 | PCPTNOTE ---
Patient called to cancel this date due to being sick.
--- NOTE | 2021-11-25 15:15 | PCPTNOTE ---
Patient did not show up for scheduled appointment this date. Called patient with no answer so left a voicemail and reminded her of her next appointment.
--- NOTE | 2021-12-02 14:10 | PTOPPROG ---
Evaluation Information Assessment Status Progress Diagnosis neck pain Onset 3 months Subjective Information Pt states she is still getting headaches, and her neck still hurts. She states intermittently throughout the day she feels increased tightness but always by the afternoon she feels it is really tight. Pt reports a little bit of improvement since starting therapy, she states her headaches are dependent on how much she moves her neck. She states by the end of the day she is nauseous from her head. She reports the frequency of her neck pain has decreased. She reports she does her exercises a lot because she cannot do much of anything else . Pt reports 20% improvement in overall symptoms since starting therapy. Assessment PT Clinical Summary Rhonda presents to therapy today for her progress report following 6 visits of skilled therapy. Today she reports good compliance with her HEP but only 20% improvement in overall symptoms. She does reports being able to go longer in her day without a headache but still has a debilitating headaches by the end of the day. She continues to demonstrates decreased cervical ROM with decreased cervical side glides with assessment. Pt would like to follow up with referring provider prior to continuing therapy. Pending this, pt would benefit from continuation of skilled therapy to address increased soft tissue tenderness and decreased soft tissue extensibility. Plan of Care Interventions Electrical Stimulation,Hot Pack/Cold Pack,Manual Therapy,Neuro Re-education,Patient/Caregiver Educati,Therapeutic Activities,Therapeutic Exercise PT Services Indicated Yes Treatment Frequency and 1x/wk for 4 wks, pending follow up with referring Duration provider These treatments will address the objective and functional deficits as defined above. The patient will be advanced safely and appropriately in order for the patient to progress towards his/her prior level of function. Additional exercises will be introduced and as well as a comprehensive home exercise program upon discharge, if needed, ?to ensure carryover of functional gains achieved in the clinic. This treatment plan has been reviewed and agreement upon by the patient.
--- NOTE | 2021-12-30 11:37 | PTOPDC ---
Assessment and note entered by Noreen Camara, PT, DPT Evaluation Information Assessment Status Discharge - Pt Not Present Diagnosis neck pain Onset 3 months Subjective Information Called and spoke with patient to get an update as she was placed on hold following our last visit. Per pt, her doctor has referring her to pain management and would like her to be discharged from therapy at this time. Assessment PT Clinical Summary Rhonda completed 7 visits of skilled therapy from 11/03/21 to 12/02/21. She will be discharged at this time. If she needs to return at a later date she will need a new order. Plan of Care Treatment Frequency and to be discharged Duration
== END 2021-12-30 12:38 | disposition home or self-care (01) ==
LOC: ANHPT 13:30
PROVIDERS: PCP Internal Medicine; Visit Provider Internal Medicine
DX: M54.2 Cervicalgia (principal)
CPT/HCPCS: 97014; 97110; 97140; 97162; 99199; G0283

== ENCOUNTER 2022-01-09 10:22 | Outpatient (CLI) | payer OTHER, SELFPAY ==
--- NOTE | ~2022-01-09 | NM_ITS ---
EXAMINATION: NM hood stress w perfusion DATE: 01/09/2022 14:37 INDICATION: Other forms of dyspnea TECHNIQUE: Rest images were obtained following intravenous administration of 10.4 mCi Tc99m tetrofosm in (Myoview). The patient was infused intravenously with Lexiscan (Regadenoson). Then, 34.2 mCi Tc99m tetrofosmin (Myoview) was administered intravenously, and stress images were obtained in supine posi tion. Additional post stress images were obtained in the prone position. Data was reconstructed into short axis and horizontal and vertical long axis SPECT images. Gated SPECT images were also obtained. COMPARISON: None. FINDINGS: There is a large region of moderately decreased activity along significant portions of the anterior, lateral and anteroseptal ward of the left ventricle on both the stress and rest images obt ained in the prone position which largely normalizes with prone imaging which on the rotating source scintigrams appears to result from breast attenuation artifact. Small region of mild decreased uptake along the mid anterior segment and could not absolutely exclude a residual small region of infarct o r ischemia although this more likely represents residual attenuation artifact. There is normal left ventricular chamber size, wall motion and ejection fraction. Left ventricular ejection fraction carla ures >70%. IMPRESSION: 1. Large region of significant likely breast attenuation artifact along the anterior lateral ward an d anteroseptal segments on both the rest and stress images obtained in supine position which nearly c ompletely normalize with prone imaging. Small focus of residual mildly decreased activity at the mid anterior segment on prone imaging most likely residual attenuation artifact although could not absolu tely exclude ischemia or infarct at this location. 2. 2. Left ventricular ejection fraction measuring >70%. Reviewed, dictated and finalized at location B. IMPRESSION: 1. Large region of significant likely breast attenuation artifact along the ant erior lateral ward and anteroseptal segments on both the rest and stress image s obtained in supine position which nearly completely normalize with prone imag ing. Small focus of residual mildly decreased activity at the mid anterior segm ent on prone imaging most likely residual attenuation artifact although could n ot absolutely exclude ischemia or infarct at this location. 2. 2. Left ventricular ejection fraction measuring >70%.
--- NOTE | 2022-01-09 10:38 | EST_ITS ---
Patient Info Name: Rhonda Millan Age: 61 years : 1960 Gender: Female Ht: 64 in Wt: 278 lbs BSA: 2.46 m2 HR: 49 bpm BP: 140 / 80 mmHg Heart Rhythm: Sinus Rhythm Exam Date: 01/09/2022 11:38 AM Exam Location: [facility] Stress Patient Status: Outpatient Admit Date: 01/09/2022 Staff Ordering Physician: Pardeep Raza DO Attending Provider: Pardeep Raza DO Exercise Technologist: Serena Zarate CT Exam Type: CA stress hood w NM Study Info Indications R06.00 - Dyspnea, unspecified A regadenoson stress test was performed. Summary 1. 1. Negative lexiscan stress test for ischemic ST changes by ECG criteria. 2. 2. Baseline hypertension. 3. 3. Nuclear scan to follow and will be reported separately. Please correlate with it. 4. 4. Patient informed of the above results. Protocol: Lexiscan Stress ECG Details Stage: REST Duration (min): 6 min : 25 sec HR (bpm): 51 SBP (mmHg): 206 DBP (mmHg): 106 Stage: REST Duration (min): 9 min : 16 sec HR (bpm): 50 SBP (mmHg): 202 DBP (mmHg): 100 Stage: REST Duration (min): 25 min : 11 sec HR (bpm): 50 SBP (mmHg): 202 DBP (mmHg): 100 Stage: STAGE 1 Duration (min): 0 min : 59 sec HR (bpm): 71 SBP (mmHg): 140 DBP (mmHg): 80 Stage: RECOVERY Duration (min): 1 min : 0 sec HR (bpm): 80 SBP (mmHg): 140 DBP (mmHg): 80 Stage: RECOVERY Duration (min): 2 min : 0 sec HR (bpm): 72 SBP (mmHg): 154 DBP (mmHg): 72 Stage: RECOVERY Duration (min): 3 min : 0 sec HR (bpm): 68 SBP (mmHg): 154 DBP (mmHg): 72 Stage: RECOVERY Duration (min): 4 min : 0 sec HR (bpm): 68 SBP (mmHg): 142 DBP (mmHg): 70 Stage: RECOVERY Duration (min): 4 min : 37 sec HR (bpm): 66 SBP (mmHg): 142 DBP (mmHg): 70 Rest HR: 50 bpm Peak HR: 80 bpm Rest Sys BP: 140 mmHg Peak Sys BP: 142 mmHg Max Pred HR: 160 bpm % Max Pred HR: 50 % Target HR: 136 bpm Max RPP: 11,360 bpm*mmHg Termination Reason: Completed protocol Cardiac Symptoms: Shortness of breath, Nausea Total Time: 1 min : 0 sec Rest Colmenares BP: 70 mmHg Peak Colmenares BP: 70 mmHg Total Dose: 0.4 mg Resting ECG Sinus bradycardia, borderline T wave in anterior leads. Stress ECG No ST changes. Arrhythmias None. Report Signatures
== END 2022-01-09 10:23 | disposition home or self-care (01) ==
PROVIDERS: PCP Internal Medicine; Visit Provider Internal Medicine Cardiovascular Disease
DX: R06.09 Other forms of dyspnea (principal)
CPT/HCPCS: 78452; 93017; A9502; J0280; J2785

== ENCOUNTER 2022-01-29 15:58 | Inpatient (IN) | payer OTHER, SELFPAY ==
[2022-01-29] VITALS (51 sets, daily range): BP systolic 92–139; BP diastolic 58–111; PULSE 73–172; RESP 11–29; TEMP 36.5–36.6; O2SAT 94–99; BMI 47.7
--- NOTE | ~2022-01-29 | XR_ITS ---
EXAMINATION: XR chest 2V DATE: 01/29/2022 17:20 INDICATION: Chest pain and shortness of breath TECHNIQUE: PA and lateral views of the chest were obtained. COMPARISON: Chest radiograph dated 09/15/2021 FINDINGS: The lungs remain clear with no focal airspace opacities, pulmonary edema, pleural effusion or pneumot horax. The cardiomediastinal silhouette is normal. Cholecystectomy clips in right upper quadrant. Mil d thoracic spondylosis. IMPRESSION: 1. No acute cardiopulmonary disease. Reviewed, dictated and finalized at location B.
--- NOTE | 2022-01-29 16:04 | ECG_ITS ---
Measurements Intervals [place] Rate: 128 P: LA: 0 QRS: -28 QRSD: 122 T: -40 QT: 361 QTc: 528 Interpretive Statements ATRIAL FLUTTER/TACHYCARDIA WITH RAPID VENTRICULAR RESPONSE BORDERLINE R WAVE PROGRESSION, ANTERIOR LEADS BASELINE ARTIFACT- II, III, V5 ABNORMAL ECG COMPARED TO ECG 02/21/2020 20:33:10 ATRIAL FLUTTER NOW PRESENT Electronically Signed On 01-29-2022 19:35:04 CDT by Pardeep Raza D.O.
[2022-01-29 16:24] LABS: Basophils Absolute Auto 0.1 K/mm3 (0.0-0.1); Basophils Percent Auto 0.9 % (0.2-1.2); Eosinophils Absolute Auto 0.3 K/mm3 (0-0.3); Eosinophils Percent Auto 2.1 % (0-4.4); Hemoglobin 14.9 g/dL (12.0-15.0); Immature Granulocyte Absolute 0.06 K/mm3 (0.00-0.031); Immature Granulocyte Percent A 0.5 % (0-0.5); Lymphocytes Absolute Auto 3.69 K/mm3 (0.9-3.2); Lymphocytes Percent Auto 28.7 % (18.3-44.2); Mean Corpuscular HGB Conc 32.4 g/dl (32-36); Mean Corpuscular Hemoglobin 28.7 pg (26-34); Mean Corpuscular Volume 88.6 fl (80-100); Mean Platelet Volume 9.6 fl (7.4-10.4); Monocytes Absolute Auto 0.7 K/mm3 (0.1-0.6); Monocytes Percent Auto 5.7 % (2.6-8.5); Neutrophils Percent Auto 62.1 % (45.5-73.1); Platelet Count Result 373 k/mm3 (150-375); Red Blood Count 5.19 M/mm3 (4.2-5.4); White Blood Count 12.9 K/mm3 (4.5-10.0)
--- NOTE | 2022-01-29 16:33 | ED.SOB ---
HPI - SOB/Dyspnea General Chief Complaint: Shortness of Breath/Dyspnea Stated Complaint: sob Time Seen by Provider: 01/29/22 16:32 Source: patient and family Mode of arrival: ambulatory Limitations: no limitations History of Present Illness HPI Narrative: Patient is a 61-year-old female with a history of paroxysmal atrial fibrillation, chronic anticoagulation, hypothyroidism, hyperlipidemia, presenting to the emergency department for evaluation of shortness of breath, palpitations and chest pain. Patient states that she was recently initiated on metoprolol and flecainide to better control her paroxysmal atrial fibrillation. Patient has been compliant with her chronic anticoagulation. Patient states that she did not tolerate the flecainide well and states that it made her feel short of breath. Patient discontinue this medication 01/26. Patient contacted Dr. Raza who referred her to this emergency department for evaluation of her symptoms. Patient denies leg swelling. She denies cough or hemoptysis. She denies fever, chills, rhinorrhea or congestion. Patient reports pressure across the center of her chest without radiation to the neck, jaw, back, shoulder. No ripping or tearing sensation to the flank. Patient denies diaphoresis. Related Data Home Medications Medication Instructions Recorded Confirmed fluticasone propionate 50 2 spray intranasal DAILY 10/29/21 01/22/22 mcg/actuation nasal spray,suspension oxybutynin chloride 5 mg tablet 5 mg PO DAILY 10/29/21 01/22/22 simvastatin 20 mg tablet 10 mg PO DAILY 10/29/21 01/22/22 Allergies Allergy/AdvReac Type Severity Reaction Status Date / Time clavulanic acid AdvReac Intermediate Vomiting Verified 12/31/21 13:13 [From Augmentin] clarithromycin AdvReac Mild Vomiting Verified 12/31/21 13:13 hydrocodone AdvReac Mild NAUSEA/ITCH Verified 12/31/21 13:13 ING Macrolide Antibiotics AdvReac Mild Vomiting Verified 12/31/21 13:13 Review of Systems Review of Systems: CONSTITUTIONAL: Denies fever, chills, or sweats. EYES: Denies visual changes, redness, or discharge. ENT: Denies rhinorrhea, congestion, sore throat, or otalgia. CARDIOVASCULAR: Reports chest pain, palpitations, denies leg edema RESPIRATORY: Reports cough and shortness of breath GASTROINTESTINAL: Denies abdominal pain, nausea, vomiting, or diarrhea. GENITOURINARY: Denies dysuria or hematuria. SKIN: Denies rash or itching. MUSCULOSKELETAL: Denies back pain, joint pain, or myalgia. NEUROLOGIC: Denies headache, numbness, or weakness. [facility] Past Medical History Medical History Anxiety Arthritis Asthma Bilateral ankle fractures Bronchitis Chronic back pain Depression Diabetes DVT prophylaxis Dyslipidemia Edema of both lower extremities Fibromyalgia GERD (gastroesophageal reflux disease) Headache, migraine Hemorrhoids History of angina Hypokalemia Hypothyroidism IBS (irritable bowel syndrome) Morbid obesity with BMI of 45.0-49.9, adult AVINASH (obstructive sleep apnea) Osteoporosis PAF (paroxysmal atrial fibrillation) Peripheral neuropathy Person under investigation for COVID-19 Pneumonia Post-menopausal Screening for breast cancer Screening for colon cancer Screening for osteoporosis Sinus infection Thyroid disease UTI (urinary tract infection) Vertigo Surgical History Surgical History H/O wrist surgery History of ankle surgery History of carpal tunnel release History of cholecystectomy History of endometrial ablation Family History Family History Father Diabetes mellitus Hypertension Family history of lung cancer Family history of malignant neoplasm of kidney Family history of diabetes mellitus in first degree relative Mother Family history of osteoporosis Hypertension Family history of arthritis Other Famil
[2022-01-29 16:34] LABS: Alanine Aminotransferase 17 U/L (6-35); Albumin Level 4.1 g/dL (3.5-5.1); Alkaline Phosphatase 96 U/L (38-126); Anion Gap 11 mmol/L (8-16); Aspartate Amino Transferase 26 U/L (14-36); Bilirubin,Total 0.4 mg/dL (0.2-1.3); Blood Urea Nitrogen 17 mg/dL (7-17); Calcium 8.7 mg/dL (8.4-10.2); Carbon Dioxide 27 mmol/L (22-30); Chloride 103 mmol/L (98-107); Estimated CRCL calculation 87 ml/min; Estimated Glomerular Filt Rate > 60; Glucose 162 mg/dL (65-110); Lipase 69 U/L (23-300); Potassium 3.9 mmol/L (3.4-5.0); Sodium 141 mmol/L (137-145)
[2022-01-29 16:40] LABS: INR 1.1; Prothrombin Time 13.8 Seconds (11.1-14.7)
[2022-01-29 16:41] LABS: Partial Thromboplastin Time 30.5 SECONDS (22.3-36.8)
[2022-01-29 16:46] LABS: Troponin I < 0.012 ng/mL (0.000-0.034)
[2022-01-29] MEDS: METOPROLOL TARTRATE 50 MG TAB PO (16:58)
[2022-01-29] MEDS: MAGNESIUM SULF 1 GM/D5W 100 ML 1 GM/100 ML BAG IVPB (16:58)
[2022-01-29] MEDS: SODIUM CHLORIDE 0.9% IV 1,000 ML 999 ML IV CONT (16:59)
[2022-01-29 17:23] LABS: NT Pro B Type Natriuretic Pept 727 pg/mL (5-100)
--- NOTE | 2022-01-29 18:13 | ECG_ITS ---
Measurements Intervals [place] Rate: 113 P: 196 DC: 181 QRS: -30 QRSD: 90 T: -17 QT: 191 QTc: 262 Interpretive Statements ATRIAL FLUTTER WITH RAPID VENTRICULAR RESPONSE LOW QRS VOLTAGE IN PRECORDIAL LEADS BORDERLINE R WAVE PROGRESSION, ANTERIOR LEADS BASELINE ARTIFACT- I, III, AVR, AVL, V4-V5 ABNORMAL ECG COMPARED TO ECG 01/29/2022 16:09:38 NO SIGNIFICANT CHANGES Electronically Signed On 01-29-2022 19:35:57 CDT by Pardeep Raza D.O.
--- NOTE | 2022-01-29 18:23 | PC.NURSE ---
Talked to Erin in lab at 18:23 to add on D Dimer
[2022-01-29] MEDS: MORPHINE SULFATE (*CRX) 4 MG/ML INJ IV PUSH (18:34)
[2022-01-29 19:13] LABS: D Dimer 0.41 ug/mL (<0.48)
--- NOTE | 2022-01-29 19:14 | PC.NURSE ---
Patient report given to ALEXANDRE Issa. All questions answered and care of patient transferred.
--- NOTE | 2022-01-29 19:26 | PM.CNCAR ---
Assessment and Plan Assessment and plan (1) Atrial flutter, paroxysmal: Code(s): I48.92 - Unspecified atrial flutter Status: Acute Assessment and Plan: On Diltiazem and Eliquis. [id number] 2. Rate is controlled currently after dose of Metoprolol in ER. Start Sotalol 80 mg every 12 hours. Anticipate 2 nights stay for loading of Sotalol. Check EKG 1-2 hours after each dose. Obtain echo in AM. (2) PAF (paroxysmal atrial fibrillation): Code(s): I48.0 - Paroxysmal atrial fibrillation Status: Acute Assessment and Plan: Same as for #1. (3) Dyslipidemia: Code(s): E78.5 - Hyperlipidemia, unspecified Status: Acute Assessment and Plan: On Simvastatin. (4) AVINASH (obstructive sleep apnea): Code(s): G47.33 - Obstructive sleep apnea (adult) (pediatric) Status: Acute Assessment and Plan: Continue regular CPAP use. (5) Morbid obesity with BMI of 45.0-49.9, adult: Code(s): E66.01 - Morbid (severe) obesity due to excess calories; Z68.42 - Body mass index [BMI] 45.0-49.9, adult Status: Acute History of Present Illness History of Present Illness Consult date/time: 01/29/22 19:26 Reason For Visit: sob Narrative: Patient is a 61 yr old woman who is my regular cardiology patient presents to ER for sob. She has a history of PAF, in Nov 2018 found to have severe gastritis/esophagitis related to NSAID use, DM, dyslipidemia, AVINASH on CPAP, obesity, covid infection 02/21/20. Reports she stopped taking Flecainide a few days ago due to feeling sob with it. Then today she felt more sob, chest pain and so she came in to ER and found to be in atrial flutter with RVR. She is having some epigastric discomfort now and chest pain resolved. She is using her CPAP and working well. She? reports limited at walking 2 blocks due to to left knee pain and VILLAGRAN.? Denies orthopnea, edema. Previously, she had excessive bruising over her thighs and legs and she went to [facility] ER and INR was found to be 9 on 10/11/20 per patient. They had her stop Warfarin.? Cardiovascular Procedures Echo/MUGA:: Echo (EF 60-65%, mild LVH, grade II diastolic dysfunction, mild LAE, trace MR/TR.) - 12/11/2018 Electrophysiology:: 02/21/20 EKG: Sinus rhythm, delayed R/S transition, borderline T wave in diffuse leads. 05/28/19 EKG: Sinus rhythm, delayed R/S transition, borderline T wave in inferior leads. EKG (Sinus rhythm with short NM interval, IRBBB, borderline ST-T wave in inferior leads. ) - 12/01/2018 EVR (30 day event monitor: Sinus rhythm HR range 35-155 bpm; average 70 bpm; 1% PAC's and PVC's; 12 episodes of atrial fib, fastest at 155 bpm and longest lasting 2 hours and 48 minutes.) - 12/01/2018 Stress Tests:: /21 Venous duplex: No DVT of right leg. Review of Systems Review of Systems: All systems reviewed & are unremarkable except as noted in HPI and below Constitutional: Constitutional: Reports as per HPI, Denies chills and Denies fever(s) Cardiovascular: Cardiovascular: Reports as per HPI, Reports chest pain, Denies irregular heart rhythm, Denies leg edema and Denies lightheadedness Respiratory: Respiratory: Reports as per HPI and Reports dyspnea Gastrointestinal: Gastrointestinal: Reports as per HPI and Denies abdominal pain Genitourinary: Genitourinary: Reports as per HPI and Denies dysuria Musculoskeletal: Musculoskeletal: Reports as per HPI and Reports arthralgias Neurologic: Reports as per HPI, Denies dizziness and Denies syncope [facility] Past Medical History Medical History Anxiety Arthritis Asthma Bilateral ankle fractures Bronchitis Chronic back pain Depression Diabetes DVT prophylaxis Dyslipidemia Edema of both lower extremities Fibromyalgia GERD (gastroesophageal reflux disease) Headache, migraine Hemorrhoids History of angina Hypokalemia Hypothyroidism IBS (irritable bowel syndrome) Morbid obesity with BMI of 45.0-49.9, billie
--- NOTE | 2022-01-29 19:36 | ECG_ITS ---
Measurements Intervals [place] Rate: 71 P: CA: 0 QRS: -12 QRSD: 114 T: 21 QT: 431 QTc: 469 Interpretive Statements ATRIAL FLUTTER INCOMPLETE RIGHT BUNDLE BRANCH BLOCK LOW QRS VOLTAGE IN PRECORDIAL LEADS BORDERLINE R WAVE PROGRESSION, ANTERIOR LEADS BASELINE ARTIFACT- I, II, III, AVR, AVL, AVF ABNORMAL ECG COMPARED TO ECG 01/29/2022 18:30:03 NO SIGNIFICANT CHANGES Electronically Signed On 01-30-2022 7:03:27 CDT by Pardeep Raza D.O.
[2022-01-29 20:01] LABS: Troponin I < 0.012 ng/mL (0.000-0.034)
[2022-01-29 20:09] LABS: SARS-CoV-2 RNA PCR Negative
--- NOTE | 2022-01-29 21:33 | PM.IMHP ---
H&P: HPI History of Present Illness Date/Time: 01/29/22 21:33 Chief Complaint: shortness of breath and dyspnea. Narrative: This is a 61-year-old female patient has a history of paroxysmal atrial fibrillation, chronic anticoagulation, hypothyroidism, hyperlipidemia. The patient came to the emergency room due to shortness of breath, palpitations and chest pain. The patient was recently initiated on metoprolol on flecainide for control paroxysmal atrial fibrillation. The patient has been compliant with her medication. However the patient was not able to tolerate the flecainide and thought that it was making her feel short of breath. Patient has no leg swelling. She has no fever chills. The patient stated that she has been having some pressure across her chest without radiation to her neck jaw or shoulder. Patient denies any diaphoresis. Her imitation marble mechanic has been consulted. The patient was found to be in atrial flutter today 2-1 and 3-1. Her white count was found to be 12.9. Glucose is 162. Initial troponin was negative. BNP 727. COVID was found to be negative. The patient was given an aspirin, normal saline, IV Lopressor, magnesium, and morphine. Chest x-ray was read as no acute cardiopulmonary disease. The patient is being admitted to observation status on the date of service of 01/29/2022. Review of Systems Review of Systems: See HPI All systems reviewed & are unremarkable except as noted in HPI and below Constitutional: Constitutional: Reports as per HPI and Reports no additional constitutional complaints Eyes: Eyes: Reports as per HPI and Reports no additional eye complaints ENT: Reports system reviewed and no additional complaints, except as documented and Reports Normal hearing present Cardiovascular: Cardiovascular: Reports no additional cardiovascular complaints Respiratory: Respiratory: Reports no additional respiratory complaints and Reports no additional respiratory complaints Gastrointestinal: Gastrointestinal: Reports as per HPI and Reports no additional gastrointestinal complaints Musculoskeletal: Musculoskeletal: Reports no additional musculoskeletal complaints Integumentary/Breasts: Skin/Breast: Reports system reviewed and no additional complaints, except as docu and Reports as per HPI Neurologic: Reports system reviewed and no additional complaints, except as documented, Reports as per HPI and Reports Normal hearing present Psychiatric: Psychiatric: Reports no additional psychiatric complaints and Reports as per HPI Endocrine: Endocrine: Reports no additional endocrine complaints Hematologic/Lymphatic: Hematologic/Lymphatic: Reports no additional hematologic/lymphatic complaints Allergic/Immunologic: Allergic/Immunologic: Reports no additional allergic/immunologic complaints [facility] Past Medical History Medical History (Updated 01/30/22 @ 00:18 by Ileana Schwab NP) Abnormal chest xray Anxiety Arthritis Asthma Atypical mole Back pain Bilateral ankle fractures Bronchitis Chronic back pain COVID-19 Depression Diabetes DVT prophylaxis Dyslipidemia Ecchymosis Edema of both lower extremities Encounter for vitamin deficiency screening Establishing care with new doctor, encounter for Fibromyalgia GERD (gastroesophageal reflux disease) Headache, migraine Hemorrhoids History of angina Hypokalemia Hypothyroidism IBS (irritable bowel syndrome) Morbid obesity with BMI of 45.0-49.9, adult AVINASH (obstructive sleep apnea) Osteoporosis PAF (paroxysmal atrial fibrillation) Paronychia of great toe Peripheral neuropathy Person under investigation for COVID-19 Pneumonia Positive depression screening Post-menopausal Right leg pain Screening for breast cancer Screening for breast cancer Screening for colon cancer Screening for osteoporosis Sinus infection Supratherapeutic INR Thyroid disease UTI (urinary tract infection) Vertigo Surgical History Surgical History (Updated 01/30/22 @ 00:09
[2022-01-29] MEDS: SOTALOL HCL 80 MG TABLET PO (21:58)
--- NOTE | 2022-01-29 23:10 | ADMGEN ---
This patient, Rhonda Millan, was admitted to IMU Room 200-01. Patient/family oriented to hospital policies and general routines including ID bracelet, bed and alarms, visiting hours, pain management, procedures, bathroom and other care routines, personal items, smoking policy, room service/diet, and visiting hours. Information on how to activate the Rapid Response Team has been discussed. Patient/Family are encouraged to report perceived risks to care and to ask questions if they do not understand what they are told or what they should do.
[2022-01-30] VITALS (17 sets, daily range): BP systolic 107–147; BP diastolic 67–87; PULSE 50–105; RESP 16–22; TEMP 35.7–36.6; O2SAT 95–99
--- NOTE | 2022-01-30 | ECG_ITS ---
Measurements Intervals [place] Rate: 51 P: 27 SD: 165 QRS: 4 QRSD: 96 T: 14 QT: 467 QTc: 430 Interpretive Statements SINUS BRADYCARDIA POSSIBLE LEFT ATRIAL ENLARGEMENT INCOMPLETE RIGHT BUNDLE BRANCH BLOCK DELAYED PRECORDIAL R/S TRANSITION LOW QRS VOLTAGE IN PRECORDIAL LEADS BORDERLINE T WAVE ABNORMALITY- ANTERIOR LEADS BORDERLINE ECG COMPARED TO ECG 01/29/2022 23:29:11 SINUS BRADYCARDIA NOW PRESENT Electronically Signed On 01-30-2022 11:55:32 CDT by Pardeep Raza D.O.
--- NOTE | 2022-01-30 | ECHO_ITS ---
Patient Info Name: Rhonda Millan Age: 61 years : 1960 Gender: Female Ht: 65 in Wt: 276 lbs BSA: 2.47 m2 HR: 66 bpm BP: 115 / 76 mmHg Technical Quality: Good Exam Date: 01/30/2022 8:26 AM Exam Location: [facility] Patient Status: Inpatient Admit Date: 01/29/2022 Staff Ordering Physician: Pardeep Raza DO Manager Of Disaster Recovery: Leonidas Agustin RDCS, RT Attending Provider: Caesar Alatorre MD Exam Type: CA echo doppler color flow Study Info Complete two-dimensional, color flow and Doppler transthoracic echocardiogram is performed. Summary 1. Complete two-dimensional, color flow and Doppler transthoracic echocardiogram is performed. 2. Left ventricular chamber dimension is normal. 3. Left ventricular systolic function is normal, estimated at 60-65%. 4. There is mildly increased left ventricular wall thickness. 5. The left ventricular diastolic function is grade IV diastolic dysfunction. 6. E/e' 10 is mildly elevated. 7. Left atrial chamber dimension is moderately enlarged. 8. There is trace tricuspid valve regurgitation. 9. There is trivial pericardial effusion. Left Ventricle E/e' 10 is mildly elevated. Left ventricular chamber dimension is normal. Left ventricular systolic function is normal, estimated at 60-65%. There is mildly increased left ventricular wall thickness. The left ventricular diastolic function is grade IV diastolic dysfunction. Right Ventricle Right ventricular systolic function is normal and with normal TAPSE 2.3 cm. Right ventricular chamber dimension is normal. Left Atria Left atrial chamber dimension is moderately enlarged. Right Atria Right atrial chamber dimension is normal. Aortic Valve The aortic valve is trileaflet. There is no aortic valve stenosis. There is no aortic valve regurgitation. Pulmonic Valve There is no pulmonic regurgitation. Mitral Valve There is no mitral valve stenosis. There is no mitral valve regurgitation. Tricuspid Valve There is trace tricuspid valve regurgitation. RVSP is not calculated due to an inadequate TR jet. Pericardium/Pleural There is trivial pericardial effusion. Inferior Vena Cava Normal inferior vena cava with >50% collapse upon inspiration consistent with normal right atrial pressure, 5 mmHg. Aorta The aortic root size at the sinus of Valsalva is normal. Left Ventricular Outflow Tract Name Value Normal LVOT 2D LVOT Diameter 2.0 cm LVOT Doppler LVOT Peak Gradient 3 mmHg LVOT Mean Gradient 2 mmHg LVOT VTI 18 cm LVOT VTI/AV VTI Ratio 0.7 LVOT Stroke Volume 56 ml Mitral Valve Name Value Normal MV Doppler MV Decel [place] 536 cm/s2 MV PHT 57 ms
--- NOTE | 2022-01-30 00:23 | PCRCNOTE ---
Patient refused to wear autopap tonight. Equipment is on standby in patient's room.
[2022-01-30 00:30] LABS: Troponin I < 0.012 ng/mL (0.000-0.034)
[2022-01-30] MEDS: TIZANIDINE HCL 4 MG TABLET PO ×2 (00:51→20:15)
[2022-01-30] MEDS: EMPAGLIFLOZIN 10 MG TABLET PO ×2 (00:51→20:14)
[2022-01-30] MEDS: APIXABAN 5 MG TABLET PO ×3 (00:52→20:14)
[2022-01-30] MEDS: SIMVASTATIN 10 MG TABLET PO (01:07)
[2022-01-30 05:21] LABS: Basophils Absolute Auto 0.1 K/mm3 (0.0-0.1); Eosinophils Absolute Auto 0.3 K/mm3 (0-0.3); Eosinophils Percent Auto 2.6 % (0-4.4); Hematocrit 40.9 % (37.0-47.0); Hemoglobin 13.1 g/dL (12.0-15.0); Immature Granulocyte Absolute 0.04 K/mm3 (0.00-0.031); Immature Granulocyte Percent A 0.4 % (0-0.5); Lymphocytes Absolute Auto 3.58 K/mm3 (0.9-3.2); Lymphocytes Percent Auto 35.9 % (18.3-44.2); Mean Corpuscular Hemoglobin 28.1 pg (26-34); Mean Corpuscular Volume 87.6 fl (80-100); Mean Platelet Volume 9.8 fl (7.4-10.4); Monocytes Absolute Auto 0.8 K/mm3 (0.1-0.6); Monocytes Percent Auto 7.6 % (2.6-8.5); Neutrophils Absolute Auto 5.2 K/mm3 (1.3-6.7); Neutrophils Percent Auto 52.5 % (45.5-73.1); Platelet Count Result 350 k/mm3 (150-375); Red Blood Count 4.67 M/mm3 (4.2-5.4)
[2022-01-30 06:14] LABS: Alanine Aminotransferase 16 U/L (6-35); Albumin Level 3.3 g/dL (3.5-5.1); Alkaline Phosphatase 91 U/L (38-126); Anion Gap 8 mmol/L (8-16); Aspartate Amino Transferase 20 U/L (14-36); Bilirubin,Total 0.4 mg/dL (0.2-1.3); Blood Urea Nitrogen 17 mg/dL (7-17); Calcium 8.2 mg/dL (8.4-10.2); Carbon Dioxide 24 mmol/L (22-30); Chloride 106 mmol/L (98-107); Estimated CRCL calculation 100 ml/min; Estimated Glomerular Filt Rate > 60; Glucose 109 mg/dL (65-110); Magnesium 2.3 mg/dL (1.6-2.3); Potassium 4.3 mmol/L (3.4-5.0); Sodium 138 mmol/L (137-145)
[2022-01-30] MEDS: LEVOTHYROXINE SODIUM 112 MCG TABLET PO (06:30)
--- NOTE | 2022-01-30 07:56 | PM.PNCARD ---
Progress Note: A&P Assessment and Plan (1) Atrial flutter, paroxysmal: Code(s): I48.92 - Unspecified atrial flutter Status: Acute Assessment and Plan: In Sinus rhythm now. [id number] 2. On Eliquis. Intolerant of Flecainide. Stopped Diltiazem. Started Sotalol 80 mg every 12 hours on 01/29/22. Anticipate 1 more night stay for loading of Sotalol. Check EKG 1-2 hours after each dose. Obtain echo today. (2) PAF (paroxysmal atrial fibrillation): Code(s): I48.0 - Paroxysmal atrial fibrillation Status: Acute Assessment and Plan: Same as for #1. (3) Dyslipidemia: Code(s): E78.5 - Hyperlipidemia, unspecified Status: Acute Assessment and Plan: Change Simvastatin to Pravastatin. (4) AVINASH (obstructive sleep apnea): Code(s): G47.33 - Obstructive sleep apnea (adult) (pediatric) Status: Acute Assessment and Plan: Continue regular CPAP use. (5) Morbid obesity with BMI of 45.0-49.9, adult: Code(s): E66.01 - Morbid (severe) obesity due to excess calories; Z68.42 - Body mass index [BMI] 45.0-49.9, adult Status: Acute Subjective Date/time seen: 01/30/22 07:56 Interval history: Reports feeling congested after walking to restroom this morning. She is normal rhythm. No chest pain. Exam Const: General: cooperative, healthy appearing and comfortable Orientation/consciousness: oriented to person, oriented to place and oriented to time Resp: Auscultation: clear to auscultation bilaterally, no crackles, no rales, no rhonchi and no wheezes Cardio: Rate: regular rate Rhythm: regular rhythm Heart sounds: no murmurs Peripheral pulses: dorsalis pedis present Neuro: General: oriented to person, oriented to place and oriented to time Extrem: Right lower extremity: no edema Left lower extremity: no edema Objective Data Vital Signs Vital Signs: Vital Signs - 24 hr 01/29/22 15:59 01/29/22 16:31 01/29/22 16:31 Temperature 97.8 F Pulse Rate 77 138 H Respiratory Rate 18 Blood Pressure 139/77 Pulse Oximetry 98 98 Oxygen Delivery Room Air Room Air 01/29/22 16:58 01/29/22 16:17 01/29/22 16:30 Temperature Pulse Rate 123 H 154 H 143 H Respiratory Rate 17 15 Blood Pressure Pulse Oximetry 97 98 Oxygen Delivery 01/29/22 16:35 01/29/22 16:45 01/29/22 16:47 Temperature Pulse Rate 143 H 155 H 148 H Respiratory Rate 11 L 16 17 Blood Pressure 121/89 113/73 Pulse Oximetry 98 97 96 Oxygen Delivery 01/29/22 17:00 01/29/22 17:02 01/29/22 17:17 Temperature Pulse Rate 130 H 150 H Respiratory Rate 14 11 L Blood Pressure 130/95 H Pulse Oximetry 98 99 Oxygen Delivery 01/29/22 17:30 01/29/22 17:32 01/29/22 17:33 Temperature Pulse Rate 140 H 168 H 136 H Respiratory Rate 19 16 22 H Blood Pressure 107/86 Pulse Oximetry 96 95 Oxygen Delivery 01/29/22 17:45 01/29/22 17:47 01/29/22 18:00 Temperature Pulse Rate 120 H 138 H 133 H Respiratory Rate 14 19 25 H Blood Pressure 110/98 H Pulse Oximetry 95 Oxygen Delivery 01/29/22 18:02 01/29/22 18:15 01/29/22 18:19 Temperature Pulse Rate 108 H 99 108 H Respiratory Rate 24 H 15 20 Blood Pressure 110/71 112/66 Pulse Oximetry 94 96 96 Oxygen Delivery 01/29/22 18:30 01/29/22 18:34 01/29/22 18:36 Temperature Pulse Rate 99 115 H 105 H Respiratory Rate 13 18 17 Blood Pressure 101/72 Pulse Oximetry 96 96 97 Oxygen Delivery 01/29/22 18:45 01/29/22 18:47 01/29/22 19:00 Temperature Pulse Rate 78 110 H 80 Respiratory Rate 18 24 H 15 Blood Pressure 92/79 L Pulse Oximetry 95 97 96 Oxygen Delivery 01/29/22 21:58 01/29/22 19:02 01/29/22 19:15 Temperature Pulse Rate 119 H 85 75 Respiratory Rate 13 14 Blood Pressure 97/58 L Pulse Oximetry 97 97 Oxygen Delivery 01/29/22 19:17 01/29/22 19:30 01/29/22 19:33 Temperature Pulse Rate 75 75 80 Respiratory Rate 13 16 18 Blood Pressure
[2022-01-30 08:27] LABS: Glucose Point of Care 148 mg/dl (65-105)
[2022-01-30] MEDS: OXYBUTYNIN CHLORIDE 5 MG TABLET PO ×2 (09:44→18:12)
[2022-01-30] MEDS: GABAPENTIN 300 MG CAPSULE 600 MG PO ×2 (09:44→18:12)
[2022-01-30] MEDS: CITALOPRAM HYDROBROMIDE 20 MG TABLET 40 MG PO (09:44)
[2022-01-30] MEDS: methocarbamoL 750 MG TABLET PO ×2 (09:44→18:11)
[2022-01-30] MEDS: PANTOPRAZOLE 40 MG TABLET PO ×2 (09:45→18:15)
[2022-01-30] MEDS: FLUTICASONE PROPIONATE 0.05% NA SPR 16 GM BTL (*BKC) 2 SPRAY NASAL (09:48)
[2022-01-30 12:18] LABS: Glucose Point of Care 138 mg/dl (65-105)
--- NOTE | 2022-01-30 13:34 | PM.IMPN ---
Progress Note: A&P Assessment and Plan (1) Atrial flutter, paroxysmal: Code(s): I48.92 - Unspecified atrial flutter Status: Acute Assessment and Plan: -cardiology has been consulted and has seen the patient. -The patient was given metoprolol in the emergency room. - the patient's heart rate has been in the upper 90s to the lower 100s. - the patient was intolerant to flecainide - an echo has been ordered for the patient. - sotalol challenges been ordered for tomorrow -The patient was given magnesium in the emergency room. - continue with Eliquis. 01/30/2022 interval history: 61-year-old female with a atrial fibrillation RVR upon arrival was started on diltiazem seen by tromper stopped Diltiazem started the patient on sotalol 80 mg b.i.d. will continue to monitor it may take 2 days is stabilized heart, patient anticoagulated with Eliquis, currently patient denies any chest pain shortness a breath or palpitation, will continue to monitor (2) Fibromyalgia: Code(s): M79.7 - Fibromyalgia Status: Acute Assessment and Plan: - continue with gabapentin. -continue with Robaxin (3) Anxiety: Code(s): F41.9 - Anxiety disorder, unspecified Status: Acute Assessment and Plan: -Continue with citalopram -check thyroid level. (4) Hypothyroidism: Qualifiers: Hypothyroidism type: acquired Qualified Code(s): E03.9 - Hypothyroidism, unspecified Code(s): E03.9 - Hypothyroidism, unspecified Status: Acute Assessment and Plan: -check thyroid level -Continue with levothyroxine. (5) Dyslipidemia: Code(s): E78.5 - Hyperlipidemia, unspecified Status: Acute Assessment and Plan: -Continue with simvastatin (6) Diabetes: Qualifiers: Diabetes mellitus type: type 2 Diabetes mellitus watermaster insulin use: without watermaster use Diabetes mellitus complication status: without complication Qualified Code(s): E11.9 - Type 2 diabetes mellitus without complications Code(s): E11.9 - Type 2 diabetes mellitus without complications Status: Acute Assessment and Plan: -Accu-Cheks AC and HS with sliding scale insulin. P.r.n. hypoglycemic protocol -check A1c. -Continue with Jardiance if formulary Subjective Date/time seen: 01/30/22 13:34 ?shortness of breath and dyspnea. HPI-Narrative: ? This is a 61-year-old female patient has a history of paroxysmal atrial fibrillation, chronic anticoagulation, hypothyroidism, hyperlipidemia.? The patient came to the emergency room due to shortness of breath, palpitations and chest pain.? The patient was recently initiated on metoprolol on flecainide for control paroxysmal atrial fibrillation.? The patient has been compliant with her medication.? However the patient was not able to tolerate the flecainide and thought that it was making her feel short of breath.? Patient has no leg swelling.? She has no fever chills.? The patient stated that she has been having some pressure across her chest without radiation to her neck jaw or shoulder.? Patient denies any diaphoresis.? Her tromper has been consulted.? The patient was found to be in atrial flutter today 2-1 and 3-1.? Her white count was found to be 12.9.? Glucose is 162.? Initial troponin was negative.? BNP 727.? COVID was found to be negative.? The patient was given an aspirin, normal saline, IV Lopressor, magnesium, and morphine.? Chest x-ray was read as no acute cardiopulmonary disease.? The patient is being admitted to observation status on the date of service of 01/29/2022. 01/30/2022 interval history: 61-year-old female with a atrial fibrillation RVR upon arrival was started on diltiazem seen by tromper stopped Diltiazem started the patient on sotalol 80 mg b.i.d. will continue to monitor it may take 2 days is stabilized heart, patient anticoagulated with Eliquis, currently patient denies any chest pain shortness a breat
[2022-01-30] MEDS: SOTALOL HCL 80 MG TABLET PO (14:02)
[2022-01-30 16:37] LABS: Glucose Point of Care 146 mg/dl (65-105)
[2022-01-30] MEDS: PRAVASTATIN SODIUM 10 MG TABLET PO (20:14)
[2022-01-30 20:38] LABS: Glucose Point of Care 158 mg/dl (65-105)
[2022-01-30] MEDS: guaiFENesin 12 HR 600 MG TABCR 1200 MG PO (22:31)
[2022-01-31] VITALS (18 sets, daily range): BP systolic 117–136; BP diastolic 69–97; PULSE 46–65; RESP 16–22; TEMP 36.1–36.5; O2SAT 96–98
[2022-01-31] MEDS: SOTALOL HCL 80 MG TABLET PO (00:38)
[2022-01-31] MEDS: ALPRAZolam (*CRX) 0.5 MG TABLET PO (01:14)
--- NOTE | 2022-01-31 02:38 | ECG_ITS ---
Measurements Intervals [place] Rate: 51 P: 24 ND: 161 QRS: 6 QRSD: 101 T: 10 QT: 473 QTc: 438 Interpretive Statements SINUS BRADYCARDIA WITH SINUS ARRHYTHMIA POSSIBLE LEFT ATRIAL ENLARGEMENT DELAYED PRECORDIAL R/S TRANSITION LOW QRS VOLTAGE IN PRECORDIAL LEADS BORDERLINE T WAVE ABNORMALITY- ANTERIOR LEADS BORDERLINE ECG COMPARED TO ECG 01/30/2022 03:50:28 SINUS ARRHYTHMIA NOW PRESENT Electronically Signed On 01-31-2022 7:35:41 CDT by Pardeep Raza D.O.
[2022-01-31 05:02] LABS: Hematocrit 37.9 % (37.0-47.0); Mean Corpuscular HGB Conc 31.7 g/dl (32-36); Mean Corpuscular Hemoglobin 28.2 pg (26-34); Mean Corpuscular Volume 89.2 fl (80-100); Mean Platelet Volume 9.8 fl (7.4-10.4); Platelet Count Result 289 k/mm3 (150-375); Red Blood Count 4.25 M/mm3 (4.2-5.4); Red Cell Distribution Width 17.2 % (11.5-14.5); White Blood Count 9.9 K/mm3 (4.5-10.0)
[2022-01-31 05:15] LABS: Anion Gap 11 mmol/L (8-16); Blood Urea Nitrogen 20 mg/dL (7-17); Calcium 8.4 mg/dL (8.4-10.2); Carbon Dioxide 25 mmol/L (22-30); Chloride 104 mmol/L (98-107); Estimated CRCL calculation 100 ml/min; Estimated Glomerular Filt Rate > 60; Glucose 110 mg/dL (65-110); Magnesium 2.2 mg/dL (1.6-2.3); Potassium 3.9 mmol/L (3.4-5.0); Sodium 140 mmol/L (137-145)
[2022-01-31] MEDS: LEVOTHYROXINE SODIUM 112 MCG TABLET PO (05:55)
[2022-01-31 07:45] LABS: Glucose Point of Care 106 mg/dl (65-105)
--- NOTE | 2022-01-31 08:23 | PM.PNCARD ---
Progress Note: A&P Assessment and Plan (1) Atrial flutter, paroxysmal: Code(s): I48.92 - Unspecified atrial flutter Status: Acute Assessment and Plan: In Sinus rhythm now. [id number] 2. On Eliquis. Intolerant of Flecainide. 01/30/22 Echo: EF 60-65%, mild LVH, grade IV diastolic dysfunction (E/e' 10), mod LAE, trace TR, trace pericardial effusion. Stopped Diltiazem. Started Sotalol 80 mg every 12 hours on 01/29/22. Check EKG 1-2 hours after each dose. Due to bradycardia, decrease Sotalol 40 mg PO every 12 hours. May d/c home from cardiology standpoint and f/u with me in 1 week. (2) PAF (paroxysmal atrial fibrillation): Code(s): I48.0 - Paroxysmal atrial fibrillation Status: Acute Assessment and Plan: Same as for #1. (3) Dyslipidemia: Code(s): E78.5 - Hyperlipidemia, unspecified Status: Acute Assessment and Plan: Changed Simvastatin to Pravastatin. (4) AVINASH (obstructive sleep apnea): Code(s): G47.33 - Obstructive sleep apnea (adult) (pediatric) Status: Acute Assessment and Plan: Continue regular CPAP use. (5) Morbid obesity with BMI of 45.0-49.9, adult: Code(s): E66.01 - Morbid (severe) obesity due to excess calories; Z68.42 - Body mass index [BMI] 45.0-49.9, adult Status: Acute Subjective Date/time seen: 01/31/22 08:23 Interval history: Reports coughing a lot and having chest pain and back pain from it. Exam Const: General: cooperative, healthy appearing and comfortable Orientation/consciousness: oriented to person, oriented to place and oriented to time Resp: Auscultation: clear to auscultation bilaterally, no crackles, no rales, no rhonchi and no wheezes Cardio: Rate: regular rate Rhythm: regular rhythm and abnormal rhythm Heart sounds: no murmurs Peripheral pulses: dorsalis pedis present Neuro: General: oriented to person, oriented to place and oriented to time Extrem: Right lower extremity: no edema Left lower extremity: no edema Objective Data Vital Signs Vital Signs: Vital Signs - 24 hr 01/30/22 08:27 01/30/22 12:27 01/30/22 14:02 Temperature 96.3 F L 97.5 F L Pulse Rate 60 70 71 Respiratory Rate 22 H 22 H Blood Pressure 113/81 147/87 H Pulse Oximetry 96 Oxygen Delivery 01/30/22 10:00 01/30/22 12:00 01/30/22 14:00 Temperature Pulse Rate 59 L 67 65 Respiratory Rate Blood Pressure Pulse Oximetry Oxygen Delivery 01/30/22 12:00 01/30/22 16:41 01/30/22 16:00 Temperature 97.7 F Pulse Rate 59 L 58 L Respiratory Rate 22 H Blood Pressure 128/81 Pulse Oximetry 97 Oxygen Delivery Room Air 01/30/22 16:00 01/30/22 18:00 01/30/22 20:00 Temperature 97.6 F Pulse Rate 59 L 58 L Respiratory Rate 18 Blood Pressure 124/71 Pulse Oximetry 97 99 Oxygen Delivery Room Air 01/30/22 21:41 01/30/22 20:00 01/30/22 20:00 Temperature 97.6 F Pulse Rate 50 L 58 L 65 Respiratory Rate 18 18 Blood Pressure 107/67 Pulse Oximetry 95 99 Oxygen Delivery Room Air 01/30/22 22:00 01/31/22 00:00 01/31/22 00:38 Temperature 97.6 F Pulse Rate 50 L 62 65 Respiratory Rate 18 Blood Pressure 117/70 Pulse Oximetry 96 Oxygen Delivery 01/31/22 00:00 01/31/22 00:00 01/31/22 01:29 Temperature Pulse Rate 62 60 47 L Respiratory Rate 18 Blood Pressure Pulse Oximetry 96 Oxygen Delivery Room Air 01/31/22 04:00 01/31/22 04:00 01/31/22 04:00 Temperature 97.7 F Pulse Rate 49 L 50 L 50 L Respiratory Rate 18 18 Blood Pressure 121/69 Pulse Oximetry 97 97 Oxygen Delivery Room Air 01/31/22 05:31 01/31/22 07:59 Temperature 97.0 F L Pulse Rate 46 L 46 L Respiratory Rate 20 Blood Pressure 136/72 Pulse Oximetry 96 Oxygen Delivery Intake/Output Intake/Output: Intake & Output 01/28/22 01/29/22 01/30/22 01/31/22 23:59 23:59 23:59 23:59 Intake Total 1100 1620 Output Total 900 300 Balance 1100 720 -300
[2022-01-31] MEDS: guaiFENesin 12 HR 600 MG TABCR 1200 MG PO ×2 (09:05→22:34)
[2022-01-31] MEDS: CITALOPRAM HYDROBROMIDE 20 MG TABLET 40 MG PO (09:05)
[2022-01-31] MEDS: PANTOPRAZOLE 40 MG TABLET PO ×2 (09:05→17:39)
[2022-01-31] MEDS: GABAPENTIN 300 MG CAPSULE 600 MG PO ×2 (09:06→17:38)
[2022-01-31] MEDS: OXYBUTYNIN CHLORIDE 5 MG TABLET PO ×2 (09:06→17:39)
[2022-01-31] MEDS: methocarbamoL 750 MG TABLET PO ×2 (09:07→17:39)
[2022-01-31] MEDS: APIXABAN 5 MG TABLET PO ×2 (09:07→22:34)
[2022-01-31] MEDS: FLUTICASONE PROPIONATE 0.05% NA SPR 16 GM BTL (*BKC) 2 SPRAY NASAL (09:07)
[2022-01-31] MEDS: SOTALOL HCL 40 MG TABLET PO ×2 (10:57→22:35)
--- NOTE | 2022-01-31 13:00 | ECG_ITS ---
Measurements Intervals [place] Rate: 55 P: 19 [place]: 149 QRS: -5 QRSD: 106 T: -2 QT: 439 QTc: 421 Interpretive Statements SINUS BRADYCARDIA DELAYED PRECORDIAL R/S TRANSITION LOW QRS VOLTAGE IN PRECORDIAL LEADS BORDERLINE T WAVE ABNORMALITY- ANT/INF LEADS BORDERLINE ECG COMPARED TO ECG 01/31/2022 02:36:25 NO SIGNIFICANT CHANGES Electronically Signed On 01-31-2022 20:05:48 CDT by Pardeep Raza D.O.
[2022-01-31 13:19] LABS: Glucose Point of Care 131 mg/dl (65-105)
[2022-01-31] MEDS: ACETAMINOPHEN 325 MG TABLET 650 MG PO (15:37)
[2022-01-31] MEDS: BENZONATATE 100 MG CAPSULE 200 MG PO (15:37)
--- NOTE | 2022-01-31 15:59 | PM.IMPN ---
Progress Note: A&P Assessment and Plan (1) Atrial flutter, paroxysmal: Code(s): I48.92 - Unspecified atrial flutter Status: Acute Assessment and Plan: -cardiology has been consulted and has seen the patient. -The patient was given metoprolol in the emergency room. - the patient's heart rate has been in the upper 90s to the lower 100s. - the patient was intolerant to flecainide - an echo has been ordered for the patient. - sotalol challenges been ordered for tomorrow -The patient was given magnesium in the emergency room. - continue with Eliquis. 01/31/2022 interval history: 61-year-old female with a atrial fibrillation RVR upon arrival was started on diltiazem seen by sterile products processor stopped, started the patient on sotalol 80 mg b.i.d. however patient has developed bradycardia again today seen by Cardiology and reduced sotalol to 40 mg b.i.d., will continue to monitor it may take 2 days is stabilized heart, patient anticoagulated with Eliquis, currently patient denies any chest pain shortness a breath or palpitation, will continue to monitor (2) Fibromyalgia: Code(s): M79.7 - Fibromyalgia Status: Acute Assessment and Plan: - continue with gabapentin. -continue with Robaxin (3) Anxiety: Code(s): F41.9 - Anxiety disorder, unspecified Status: Acute Assessment and Plan: -Continue with citalopram -check thyroid level. (4) Hypothyroidism: Qualifiers: Hypothyroidism type: acquired Qualified Code(s): E03.9 - Hypothyroidism, unspecified Code(s): E03.9 - Hypothyroidism, unspecified Status: Acute Assessment and Plan: -check thyroid level -Continue with levothyroxine. 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 P.r.n. hypoglycemic protocol -check A1c. -Continue with Jardiance if formulary Subjective Date/time seen: 01/31/22 15:59 01/31/2022 interval history: 61-year-old female with a atrial fibrillation RVR upon arrival was started on diltiazem seen by sterile products processor stopped, started the patient on sotalol 80 mg b.i.d. however patient has developed bradycardia again today seen by Cardiology and reduced sotalol to 40 mg b.i.d., will continue to monitor it may take 2 days is stabilized heart, patient anticoagulated with Eliquis, currently patient denies any chest pain shortness a breath or palpitation, will continue to monitor Review of Systems Review of Systems: All systems reviewed & are unremarkable except as noted in HPI and below Exam Narrative: morbidly obese Patient is comfortable, NAD HEENT: eyes are clear and none icteric LUNGS: normal respiratory effort ABD: distended Lower extremities: no edema SKIN: nonjaundiced Neuro: grossly intact. Objective Data Vital Signs Vital Signs: Vital Signs - 24 hr 01/30/22 16:41 01/30/22 16:00 01/30/22 16:00 Temperature 97.7 F Pulse Rate 59 L 58 L Respiratory Rate 22 H Blood Pressure 128/81 Pulse Oximetry 97 97 Oxygen Delivery Room Air 01/30/22 18:00 01/30/22 20:00 01/30/22 21:41 Temperature 97.6 F 97.6 F Pulse Rate 59 L 58 L 50 L Respiratory Rate 18 18 Blood Pressure 124/71 107/67 Pulse Oximetry 99 95 Oxygen Delivery 01/30/22 20:00 01/30/22 20:00 01/30/22 22:00 Temperature Pulse Rate 58 L 65 50 L Respiratory Rate 18 Blood Pressure Pulse Oximetry 99 Oxygen Delivery Room Air 01/31/22 00:00
[2022-01-31 16:33] LABS: Glucose Point of Care 137 mg/dl (65-105)
[2022-01-31 20:25] LABS: Glucose Point of Care 167 mg/dl (65-105)
[2022-01-31] MEDS: EMPAGLIFLOZIN 10 MG TABLET PO (22:34)
[2022-01-31] MEDS: TIZANIDINE HCL 4 MG TABLET PO (22:35)
[2022-01-31] MEDS: PRAVASTATIN SODIUM 10 MG TABLET PO (22:35)
[2022-02-01] VITALS (8 sets, daily range): BP systolic 118–129; BP diastolic 70–94; PULSE 47–83; RESP 16–24; TEMP 36.5–36.6; O2SAT 97–98
--- NOTE | 2022-02-01 00:35 | ECG_ITS ---
Measurements Intervals [place] Rate: 48 P: 14 [place]: 158 QRS: -3 QRSD: 108 T: -4 QT: 457 QTc: 408 Interpretive Statements SINUS BRADYCARDIA DELAYED PRECORDIAL R/S TRANSITION LOW QRS VOLTAGE IN PRECORDIAL LEADS BORDERLINE T WAVE ABNORMALITY- ANT/INF LEADS ABNORMAL ECG COMPARED TO ECG 01/31/2022 13:35:22 HEART RATE HAS DECREASED Electronically Signed On 02-01-2022 7:23:58 [employer]AVE [employer]ARD [employer]SEMBLER by Pardeep Raza D.O.
--- NOTE | 2022-02-01 01:08 | PC.NURSE ---
Daylight Savings Time For Daylight Savings Time Ending in the Fall - Clocks are moved back. For Daylight Savings Time Beginning in the Spring - Clocks are moved ahead. For [facility], the time of change occurs at 0200 hrs. Time is taken from the field observer. This entry on the patient's chart recognizes the change in time reflected during documentation. Example: 2 entries for vital signs may be charted for 0200 hrs.
[2022-02-01 05:37] LABS: Hematocrit 37.6 % (37.0-47.0); Hemoglobin 12.3 g/dL (12.0-15.0); Mean Corpuscular HGB Conc 32.7 g/dl (32-36); Mean Corpuscular Hemoglobin 28.9 pg (26-34); Mean Corpuscular Volume 88.3 fl (80-100); Platelet Count Result 296 k/mm3 (150-375); Red Blood Count 4.26 M/mm3 (4.2-5.4); Red Cell Distribution Width 17.2 % (11.5-14.5); White Blood Count 9.8 K/mm3 (4.5-10.0)
[2022-02-01 05:50] LABS: Anion Gap 10 mmol/L (8-16); Blood Urea Nitrogen 19 mg/dL (7-17); Calcium 8.2 mg/dL (8.4-10.2); Carbon Dioxide 27 mmol/L (22-30); Chloride 104 mmol/L (98-107); Estimated CRCL calculation 102 ml/min; Estimated Glomerular Filt Rate > 60; Glucose 113 mg/dL (65-110); Magnesium 2.1 mg/dL (1.6-2.3); Sodium 141 mmol/L (137-145)
[2022-02-01] MEDS: LEVOTHYROXINE SODIUM 112 MCG TABLET PO (05:54)
--- NOTE | 2022-02-01 07:09 | PM.PNCARD ---
Progress Note: A&P Assessment and Plan (1) Atrial flutter, paroxysmal: Code(s): I48.92 - Unspecified atrial flutter Status: Acute Assessment and Plan: In Sinus rhythm now. [id number] 2. On Eliquis. Intolerant of Flecainide. 01/30/22 Echo: EF 60-65%, mild LVH, grade IV diastolic dysfunction (E/e' 10), mod LAE, trace TR, trace pericardial effusion. Stopped Diltiazem. Started Sotalol 80 mg every 12 hours on 01/29/22. Check EKG 1-2 hours after each dose. Due to bradycardia, decreased Sotalol 40 mg PO every 12 hours. May d/c home from cardiology standpoint and f/u with me in 1 week. (2) PAF (paroxysmal atrial fibrillation): Code(s): I48.0 - Paroxysmal atrial fibrillation Status: Acute Assessment and Plan: Same as for #1. (3) Dyslipidemia: Code(s): E78.5 - Hyperlipidemia, unspecified Status: Acute Assessment and Plan: Changed Simvastatin to Pravastatin. (4) AVINASH (obstructive sleep apnea): Code(s): G47.33 - Obstructive sleep apnea (adult) (pediatric) Status: Acute Assessment and Plan: Continue regular CPAP use. She reports not using it for awhile and has a recall on it. (5) Morbid obesity with BMI of 45.0-49.9, adult: Code(s): E66.01 - Morbid (severe) obesity due to excess calories; Z68.42 - Body mass index [BMI] 45.0-49.9, adult Status: Acute (6) Diastolic dysfunction: Code(s): I51.89 - Other ill-defined heart diseases Status: Acute Assessment and Plan: Start Furosemide 20 mg daily. Will check BMP as an outpatient in 1 week. Subjective Date/time seen: 02/01/22 07:09 Interval history: Reports coughing with chest discomfort upon lying down mainly. Exam Const: General: cooperative, healthy appearing and comfortable Orientation/consciousness: oriented to person, oriented to place and oriented to time Resp: Auscultation: clear to auscultation bilaterally, no crackles, no rales, no rhonchi and no wheezes Cardio: Rate: regular rate Rhythm: regular rhythm and abnormal rhythm Heart sounds: no murmurs Peripheral pulses: dorsalis pedis present Neuro: General: oriented to person, oriented to place and oriented to time Extrem: Right lower extremity: no edema Left lower extremity: no edema Objective Data Vital Signs Vital Signs: Vital Signs - 24 hr 01/31/22 10:57 01/31/22 12:16 01/31/22 10:00 Temperature 97.4 F L Pulse Rate 48 L 51 L 53 L Respiratory Rate 22 H Blood Pressure 127/97 H Pulse Oximetry 97 Oxygen Delivery 01/31/22 12:00 01/31/22 12:00 01/31/22 14:00 Temperature Pulse Rate 51 L 53 L Respiratory Rate Blood Pressure Pulse Oximetry 97 Oxygen Delivery Room Air 01/31/22 16:39 01/31/22 16:00 01/31/22 16:00 Temperature 97.4 F L Pulse Rate 47 L 47 L 47 L Respiratory Rate 20 20 Blood Pressure 136/76 Pulse Oximetry 96 96 Oxygen Delivery Room Air 01/31/22 18:00 01/31/22 20:00 01/31/22 22:35 Temperature 97.7 F Pulse Rate 56 L 53 L 59 L Respiratory Rate 16 Blood Pressure 129/71 Pulse Oximetry 98 Oxygen Delivery 01/31/22 20:00 02/01/22 00:00 02/01/22 00:00 Temperature 97.7 F Pulse Rate 53 L 54 L 54 L Respiratory Rate 16 18 18 Blood Pressure 129/94 H Pulse Oximetry 98 98 98 Oxygen Delivery Room Air Room Air 01/31/22 20:00 01/31/22 22:00 02/01/22 00:00 Temperature Pulse Rate 57 L 61 50 L Respiratory Rate Blood Pressure Pulse Oximetry Oxygen Delivery 02/01/22 01:36 CDT 02/01/22 04:00 02/01/22 04:00 Temperature 97.7 F Pulse Rate 48 L 66 83 Respiratory Rate 16 Blood Pressure 124/74 Pulse Oximetry 97 Oxygen Delivery 02/01/22 03:13 02/01/22 05:15 Temperature Pulse Rate 66 47 L Respiratory Rate 16 Blood Pressure Pulse Oximetry 97 Oxygen Delivery Room Air Intake/Output Intake/Output: Intake & Output 01/29/22 01/30/22 01/31/22 02/01/22 23:59 23:59 23:59 22:59 Intake
[2022-02-01] MEDS: ACETAMINOPHEN 325 MG TABLET 650 MG PO (08:25)
[2022-02-01] MEDS: methocarbamoL 750 MG TABLET PO (08:26)
[2022-02-01] MEDS: guaiFENesin 12 HR 600 MG TABCR 1200 MG PO (08:26)
[2022-02-01] MEDS: CITALOPRAM HYDROBROMIDE 20 MG TABLET 40 MG PO (08:26)
[2022-02-01] MEDS: BENZONATATE 100 MG CAPSULE 200 MG PO (08:26)
[2022-02-01 08:27] LABS: Glucose Point of Care 135 mg/dl (65-105)
[2022-02-01] MEDS: GABAPENTIN 300 MG CAPSULE 600 MG PO (08:27)
[2022-02-01] MEDS: PANTOPRAZOLE 40 MG TABLET PO (08:27)
[2022-02-01] MEDS: OXYBUTYNIN CHLORIDE 5 MG TABLET PO (08:27)
[2022-02-01] MEDS: SOTALOL HCL 40 MG TABLET PO (08:28)
[2022-02-01] MEDS: APIXABAN 5 MG TABLET PO (08:28)
[2022-02-01] MEDS: FLUTICASONE PROPIONATE 0.05% NA SPR 16 GM BTL (*BKC) 2 SPRAY NASAL (08:28)
--- NOTE | 2022-02-01 08:28 | PM.DS ---
DS: Admitting Diagnosis Discharge Date 02/01/2022 Admitting Diagnosis Atrial Flutter DS: Discharge Diagnosis Discharge Diagnosis (1) Atrial flutter, paroxysmal: Code(s): I48.92 - Unspecified atrial flutter Status: Acute (2) Fibromyalgia: Code(s): M79.7 - Fibromyalgia Status: Acute Assessment and Plan: - continue with gabapentin. -continue with Robaxin (3) Anxiety: Code(s): F41.9 - Anxiety disorder, unspecified Status: Acute Assessment and Plan: -Continue with citalopram -check thyroid level. (4) Hypothyroidism: Qualifiers: Hypothyroidism type: acquired Qualified Code(s): E03.9 - Hypothyroidism, unspecified Code(s): E03.9 - Hypothyroidism, unspecified Status: Acute Assessment and Plan: -thyroid level WNL -Continue with levothyroxine. 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 QT intervals remain within normal limits. Tolerating medications well. Denied chest pain or palpitations. Some shortness of breath with lying supine. Responded well to diuresis. No edema. No GI or issues. No abnormal bleeding. TSH was within normal limits. EKG showed no ischemic changes. Troponins were unremarkable. Chest x-ray was unremarkable. Echocardiogram showed LVH with grade 4 diastolic dysfunction. Time Spent with Patient Time attestation: Total time spent providing and/or coordinating discharge services: Exam Narrative: Patient is comfortable, NAD HEENT: eyes are clear and none icteric LUNGS: normal respiratory effort HEART: NL S1,2, RR, no murmur ABD: protuberant but soft, BS+, nontender Lower extremities: no edema Neuro: CN symmetric to visual inspection DS: Data Data Completed and Pending Labs on day of discharge: Labs from last 24 hours 02/01/22 02/01/22 02/01/22 08:08 04:30 04:30 WBC 9.8 RBC 4.26 Hgb 12.3 Hct 37.6 MCV 88.3 MCH 28.9 MCHC 32.7 RDW 17.2 H Plt Count 296 MPV 10.0 Sodium 141 Potassium 4.0 Chloride 104 Carbon Dioxide 27 Anion Gap 10 BUN 19 H Creatinine 0.70 Estim Creat Clear Calc 102 Estimated GFR > 60 Glucose 113 H POC Capillary Glucose 135 H Calcium 8.2 L Magnesium 2.1 01/31/22 01/31/22 01/31/22 19:57 16:04 11:58 WBC RBC Hgb Hct MCV MCH MCHC RDW Plt Count MPV Sodium Potassium Chloride Carbon Dioxide Anion Gap BUN Creatinine Estim Creat Clear Calc Estimated GFR Glucose POC Capillary Glucose 167 H 137 H 131 H Calcium Magnesium Discharge Plan Discharge Attending physician on discharge: Roberto Russell Consulting providers: Pardeep Raza Discharging Clinician: Roberto Russell Patient Disposition: Home, Self-Care Activity: as tolerated Diet: heart healthy, diabetic and low sodium Patient Instructions: Antibiotic Form, Sotalol (By mouth), Apixaban (By mouth), A-fib (Atrial Fibrillation) (DC), Pain Management (DC) Stand Alone Forms: General Discharge Information Follow-up/Referrals: Pardeep Raza DO [Physician] - 1 Week Harshil Santizo DO [Primary Care P
== END 2022-02-01 12:42 | disposition home or self-care (01) | DRG 201 ==
LOC: ANHED 17:17 → ANHIMU 20:37
PROVIDERS: Family Medicine; Nurse Practitioner; Admitting Provider Internal Medicine; Emergency Provider Emergency Medicine; PCP Internal Medicine; Visit Provider Internal Medicine
DX: I48.92 Unspecified atrial flutter (principal); E11.42 Type 2 diabetes mellitus with diabetic polyneuropathy; E66.01 Morbid (severe) obesity due to excess calories; Z68.42 Body mass index [BMI] 45.0-49.9, adult; E03.9 Hypothyroidism, unspecified; I48.0 Paroxysmal atrial fibrillation; I51.89 Other ill-defined heart diseases; E78.5 Hyperlipidemia, unspecified; G47.33 Obstructive sleep apnea (adult) (pediatric); M79.7 Fibromyalgia; F41.9 Anxiety disorder, unspecified; Z20.822 Contact with and (suspected) exposure to COVID-19; Z79.01 Long term (current) use of anticoagulants; Z79.899 Other long term (current) drug therapy; Z86.16 Personal history of COVID-19
CPT/HCPCS: 36415; 71046; 80048; 80053; 82948; 83036; 83690; 83735; 83880; 84443; 84484; 85025; 85027; 85380; 85610; 85730; 93005; 93306; 96365; 96375; 99285; A9270; G0378; G0379; J2270; J3475; J7030; U0003; U0005

== ENCOUNTER 2022-04-02 16:34 | Outpatient (CLI) | payer OTHER, SELFPAY ==
[2022-04-02 18:16] LABS: Add Urine Microscopic? YES; Appearance Urine Clear (Clear); Bilirubin Urine Negative (Negative); Blood Urine 1+ (Negative); Color Urine Yellow (Yellow); Glucose Urine UA 3+ mg/dL (Negative); Ketones Urine Negative (Negative); Leukocyte Esterase Ur Trace LEU/UL (Negative); Nitrate Urine Negative (Negative); Protein Urine Negative (Negative); Urobilinogen Urine 0.2 mg/dL (<2.0)
[2022-04-02 18:30] LABS: RBC Urine 21-50 /hpf (0-2); Squamous Epithelial Cell Urine Many /hpf (Few); WBC Urine 51-75 /hpf
== END 2022-04-02 16:35 | disposition home or self-care (01) ==
LOC: ANHLAB 16:35
PROVIDERS: PCP Internal Medicine; Visit Provider Nurse Practitioner
DX: R39.9 Unspecified symptoms and signs involving the genitourinary system (principal)
CPT/HCPCS: 81001; 87086

== ENCOUNTER 2022-05-15 13:33 | Emergency (ER) | payer OTHER, SELFPAY ==
[2022-05-15 13:47] VITALS: BP 127/86; PULSE 55; RESP 14; TEMP 37.3; O2SAT 96
--- NOTE | 2022-05-15 14:31 | ED.URI ---
HPI - URI/Sore Throat General Chief Complaint: Upper Respiratory Infection Stated Complaint: sore throat Time Seen by Provider: 05/15/22 14:23 Source: patient Mode of arrival: ambulatory Limitations: no limitations History of Present Illness HPI Narrative: Patient presents today complaining of a 3 day history of his achiness, mild cough and congestion, sore throat. Denies fever, shortness of breath, or any additional symptoms. She did a home COVID test that was negative. She has tried no [id number] treatment prior to arrival. Related Data Home Medications Medication Instructions Recorded Confirmed progesterone micronized 100 mg 100 mg PO HS 01/29/22 05/15/22 capsule simvastatin 10 mg tablet 10 mg PO HS 01/29/22 05/15/22 amlodipine 2.5 mg tablet 2.5 mg PO DAILY 05/07/22 05/15/22 aspirin 81 mg tablet,delayed 81 mg PO DAILY 05/07/22 05/15/22 release (Adult Low Dose Aspirin) Allergies Allergy/AdvReac Type Severity Reaction Status Date / Time clavulanic acid AdvReac Intermediate Vomiting Verified 05/15/22 13:38 [From Augmentin] clarithromycin AdvReac Mild Vomiting Verified 05/15/22 13:38 hydrocodone AdvReac Mild NAUSEA/ITCH Verified 05/15/22 13:38 ING Macrolide Antibiotics AdvReac Mild Vomiting Verified 05/15/22 13:38 flecainide AdvReac Difficulty Verified 05/15/22 13:38 Breathing Review of Systems Review of Systems: CONSTITUTIONAL: Denies fever, chills, or sweats.+ body aches EYES: Denies visual changes, redness, or discharge. ENT: Denies rhinorrhea, or otalgia.+ congestion, sore throat CARDIOVASCULAR: Denies chest pain, palpitations, or edema. RESPIRATORY: Denies dyspnea.+ cough GASTROINTESTINAL: Denies abdominal pain, nausea, vomiting, or diarrhea. GENITOURINARY: Denies dysuria or hematuria. SKIN: Denies rash, itching, or wounds. MUSCULOSKELETAL: Denies back pain, joint pain, or myalgia. NEUROLOGIC: Denies headache, numbness, tingling, or weakness. PSYCH: Denies depression or anxiety. [facility] Past Medical History Medical History Abnormal chest xray Anxiety Arthritis Asthma Atypical mole Back pain Bilateral ankle fractures Bronchitis Chronic back pain COVID-19 Depression Diabetes DVT prophylaxis Dyslipidemia Ecchymosis Edema of both lower extremities Encounter for vitamin deficiency screening Establishing care with new doctor, encounter for Fibromyalgia GERD (gastroesophageal reflux disease) Headache, migraine Hemorrhoids History of angina Hypokalemia Hypothyroidism IBS (irritable bowel syndrome) Morbid obesity with BMI of 45.0-49.9, adult AVINASH (obstructive sleep apnea) Osteoporosis PAF (paroxysmal atrial fibrillation) Paronychia of great toe Peripheral neuropathy Person under investigation for COVID-19 Pneumonia Positive depression screening Post-menopausal Right leg pain Screening for breast cancer Screening for breast cancer Screening for colon cancer Screening for osteoporosis Sinus infection Supratherapeutic INR Thyroid disease UTI (urinary tract infection) Vertigo Surgical History Surgical History H/O wrist surgery History of ankle surgery History of carpal tunnel release History of cholecystectomy History of colonoscopy History of endometrial ablation History of removal of pigmented skin lesion Family History Family History Father Diabetes mellitus Hypertension Family history of lung cancer Family history of malignant neoplasm of kidney Family history of diabetes mellitus in first degree relative Mother Family history of osteoporosis Hypertension Family history of arthritis Other Family history of malignant neoplasm Social History Social History Social History: the patient is and has 2 children. She
== END 2022-05-15 14:40 | disposition home or self-care (01) ==
PROVIDERS: Emergency Provider Nurse Practitioner; PCP Internal Medicine
DX: J06.9 Acute upper respiratory infection, unspecified (principal); E11.9 Type 2 diabetes mellitus without complications; I48.0 Paroxysmal atrial fibrillation; J45.909 Unspecified asthma, uncomplicated
CPT/HCPCS: 87081; 87880; 99213; G0463

== ENCOUNTER 2022-09-08 08:15 | Outpatient (CLI) | payer OTHER, SELFPAY ==
[2022-09-08 09:16] LABS: Alanine Aminotransferase 18 U/L (6-35); Albumin Level 4.3 g/dL (3.5-5.1); Alkaline Phosphatase 94 U/L (38-126); Anion Gap 5 mmol/L (8-16); Aspartate Amino Transferase 28 U/L (14-36); Bilirubin,Total 0.4 mg/dL (0.2-1.3); Blood Urea Nitrogen 22 mg/dL (7-17); Calcium 8.9 mg/dL (8.4-10.2); Carbon Dioxide 31 mmol/L (22-30); Chloride 104 mmol/L (98-107); Cholesterol 160 mg/dL (0-200); Estimated Glomerular Filt Rate > 60; Glucose 110 mg/dL (65-110); HDL Direct 57 mg/dL; Potassium 4.6 mmol/L (3.4-5.0); Sodium 140 mmol/L (137-145); Triglycerides 105 mg/dL (<150)
[2022-09-08 09:20] LABS: Anion Gap 3 mmol/L (8-16); Blood Urea Nitrogen 22 mg/dL (7-17); Calcium 8.8 mg/dL (8.4-10.2); Carbon Dioxide 32 mmol/L (22-30); Chloride 103 mmol/L (98-107); Estimated Glomerular Filt Rate > 60; Glucose 108 mg/dL (65-110); Potassium 4.5 mmol/L (3.4-5.0); Sodium 138 mmol/L (137-145)
[2022-09-08 09:27] LABS: LDL Cholesterol Direct 83 mg/dL
== END 2022-09-08 08:16 | disposition home or self-care (01) ==
PROVIDERS: Internal Medicine; PCP Family Medicine; Visit Provider Internal Medicine Cardiovascular Disease
DX: I48.92 Unspecified atrial flutter (principal); E78.5 Hyperlipidemia, unspecified
CPT/HCPCS: 36415; 80048; 80053; 80061